=== PATIENT | male | born 1955 | race Hispanic/Latino ===

== ENCOUNTER 2019-01-10 07:44 | Day surgery (SDC) | payer OTHER, SELFPAY ==
[2019-01-10] MEDS: PROPARACAINE 0.5% OPHTH SOL 2 DROPS EYE-OP (08:35)
[2019-01-10 08:39] VITALS: BP 181/75; PULSE 60; RESP 24; TEMP 36.1; O2SAT 99
[2019-01-10 08:40] VITALS: BMI 46.5
[2019-01-10] MEDS: CATARACT EYE COMPOUND (10 DROPS/SYRINGE) 3 DROPS EYE-OP (08:40)
--- NOTE | 2019-01-10 09:29 | PM.PREOP ---
Pre-operative Note Interval Note History & Physical reviewed/Exam performed by Physician: No Changes to H&P: No
--- NOTE | 2019-01-10 09:35 | PM.OP.1 ---
Operative Date/Time/Diagnoses Pre-op diagnosis: Nuclear cataract right eye Procedure & Clinicians Procedure: Cataract Surgery Same procedure as scheduled: Yes Surgeon: Daniel Khoury Anesthesia Type: MAC +/- and Sedation Operative Notes Procedure in detail: Patient brought to the operating suite. Tetracaine drops placed in the right eye. Patient was prepped and draped in sterile manner. Wire lid speculum was placed in the eye. Betadine drops were placed on the eye. This was irrigated. Lidocaine jelly was placed on the eye. A paracentesis port was created with a side-port blade. 0.1 mL 1% preservative free lidocaine was injected into the anterior chamber. The anterior chamber was deepened with viscoelastic. 2.6 mm keratome was used to create a temporal clear corneal incision. Cystotome and Utrata forceps were used to create continuous tear capsulorrhexis. Balanced salt solution was used to hydro dissect the nucleus. The phacoemulsification handpiece was inserted and the nucleus was removed using the stop and chop technique. The irrigation aspiration handpiece was inserted and the remaining cortex was removed. Anterior chamber was deepened with viscoelastic. An Bess ZCB00 intraocular lens with a power of 22.0 was injected into the capsular bag. Irrigation aspiration handpiece was inserted and the remaining viscoelastic was removed. Incision was hydrated with balanced salt solution and found to be leak free with pressure with Weck-Mel sponges. 0.1 mL Vigamox injected anterior chamber. 0.3 mL Kenalog 10 mg was injected subconjunctivally. Lid speculum was removed. The patient left the operating room in excellent condition. Complications: none Condition: stable Disposition: same day surgery
[2019-01-10] MEDS: PHENYLEPHRINE/LIDOCAINE VIAL (OR) 0.2 ML EYE-OP (09:51)
[2019-01-10] MEDS: MOXIFLOXACIN OPHTH DROPS 3 ML BOTTLE 2 DROPS INJ (09:52)
[2019-01-10] MEDS: TRIAMCINOLONE 50 MG/5 ML VIAL INJ (09:52)
[2019-01-10] MEDS: CHONDROIDTIN/SOD HYALURONATE 1.05 ML SYRINGE INTRAOCULA (09:52)
[2019-01-10] MEDS: TETRACAINE 0.5% OPHTH DROPS 4 ML 2 DROPS EYE-OP (09:52)
[2019-01-10] MEDS: LIDOCAINE JELLY 2% 5 ML 1 APPLIC TOP (09:52)
[2019-01-10] MEDS: BALANCED SALT IRRIG SOLN NO.2 500 ML, EPINEPHrine 1 MG IRR (09:53)
[2019-01-10 10:07] VITALS: BP 180/75; PULSE 60; RESP 20; TEMP 36.1; O2SAT 98
== END 2019-01-10 10:20 | disposition home or self-care (01) ==
LOC: OR 07:53
PROVIDERS: PCP Student in an Organized Health Care Education/Training Program; Visit Provider Ophthalmology
DX: H25.11 Age-related nuclear cataract, right eye (principal); E11.9 Type 2 diabetes mellitus without complications; Z79.84 Long term (current) use of oral hypoglycemic drugs; Z86.73 Personal history of transient ischemic attack (TIA), and cerebral infarction without residual deficits; G51.0 Bell's palsy; Z79.01 Long term (current) use of anticoagulants
CPT/HCPCS: J0171; J2250; J3010; J3301

== ENCOUNTER 2019-01-17 07:47 | Day surgery (SDC) | payer OTHER, SELFPAY ==
[2019-01-17 08:40] VITALS: BP 189/84; PULSE 71; RESP 16; TEMP 36.4; O2SAT 98; BMI 45.8
[2019-01-17] MEDS: PROPARACAINE 0.5% OPHTH SOL 2 DROPS EYE-OP (08:45)
[2019-01-17] MEDS: CATARACT EYE COMPOUND (10 DROPS/SYRINGE) 3 DROPS EYE-OP (08:50)
--- NOTE | 2019-01-17 09:38 | PM.PREOP ---
Pre-operative Note Interval Note History & Physical reviewed/Exam performed by Physician: No Changes to H&P: No
--- NOTE | 2019-01-17 09:38 | PM.OP.1 ---
Operative Date/Time/Diagnoses Pre-op diagnosis: Nuclear Cataract Left eye Post-op diagnosis: same Procedure & Clinicians Surgeon: Daniel Khoury Anesthesia Type: MAC +/- and Sedation Operative Notes Procedure in detail: Patient brought to the operating suite. Tetracaine drops placed in the left eye. Patient was prepped and draped in sterile manner. Wire lid speculum was placed in the eye. Betadine drops were placed on the eye. This was irrigated. Lidocaine jelly was placed on the eye. A paracentesis port was created with a side-port blade. 0.1 mL 1% preservative free lidocaine was injected into the anterior chamber. The anterior chamber was deepened with viscoelastic. 2.6 mm keratome was used to create a temporal clear corneal incision. Cystotome and Utrata forceps were used to create continuous tear capsulorrhexis. Balanced salt solution was used to hydro dissect the nucleus. The phacoemulsification handpiece was inserted and the nucleus was removed using the stop and chop technique. The irrigation aspiration handpiece was inserted and the remaining cortex was removed. Anterior chamber was deepened with viscoelastic. An Bess ZCB00 intraocular lens with a power of 21.5 was injected into the capsular bag. Irrigation aspiration handpiece was inserted and the remaining viscoelastic was removed. Incision was hydrated with balanced salt solution and found to be leak free with pressure with Weck-Mel sponges. 0.1 mL Vigamox injected anterior chamber. 0.3 mL Kenalog 10 mg was injected subconjunctivally. Lid speculum was removed. The patient left the operating room in excellent condition. Complications: none Condition: stable Disposition: same day surgery
[2019-01-17] MEDS: CHONDROIDTIN/SOD HYALURONATE 1.05 ML SYRINGE INTRAOCULA (09:51)
[2019-01-17] MEDS: PHENYLEPHRINE/LIDOCAINE VIAL (OR) 0.2 ML EYE-OP (09:52)
[2019-01-17] MEDS: MOXIFLOXACIN OPHTH DROPS 3 ML BOTTLE 2 DROPS INJ (09:52)
[2019-01-17] MEDS: TETRACAINE 0.5% OPHTH DROPS 4 ML 2 DROPS EYE-OP (09:52)
[2019-01-17] MEDS: LIDOCAINE JELLY 2% 5 ML 1 APPLIC TOP (09:52)
[2019-01-17] MEDS: BALANCED SALT IRRIG SOLN NO.2 500 ML, EPINEPHrine 1 MG IRR (09:53)
[2019-01-17] MEDS: TRIAMCINOLONE 50 MG/5 ML VIAL INJ (09:53)
[2019-01-17 10:06] VITALS: BP 175/76; PULSE 69; RESP 16; TEMP 36.7; O2SAT 99
== END 2019-01-17 10:16 | disposition home or self-care (01) ==
PROVIDERS: PCP Student in an Organized Health Care Education/Training Program; Visit Provider Ophthalmology
DX: H25.12 Age-related nuclear cataract, left eye (principal); E11.9 Type 2 diabetes mellitus without complications; Z79.84 Long term (current) use of oral hypoglycemic drugs; G51.0 Bell's palsy; Z86.73 Personal history of transient ischemic attack (TIA), and cerebral infarction without residual deficits
CPT/HCPCS: J0171; J2250; J3010; J3301

== ENCOUNTER → 2020-03-08 11:55 | Outpatient (ROUT) | payer MEDICARE, SELFPAY ==
[2020-03-08 12:01] LABS: Add Manual Diff / Slide Review NO; Basophils Absolute Auto 0 /uL (0-100); Basophils Percent Auto 0.5 % (0-2); Eosinophils Absolute Auto 300 /uL (0-450); Eosinophils Percent Auto 3.9 % (2-4); Hematocrit 37.8 % (41-53); Hemoglobin 12.3 g/dL (13.5-17.5); Lymphocytes Absolute Auto 1000 /uL (1100-4500); Lymphocytes Percent Auto 15.9 % (25-40); Mean Corpuscular HGB Conc 32.7 % (30-36); Mean Corpuscular Hemoglobin 26.3 PG (26-34); Mean Corpuscular Volume 80.4 fL (80-100); Monocytes Absolute Auto 700 /uL (0-900); Monocytes Percent Auto 10.6 % (3-14); Neutrophils Absolute Auto 4500 /uL (1500-7000); Neutrophils Percent Auto 69.1 % (50-75); Platelet Count 184 X10^3/uL (150-400); Red Blood Cell Count 4.69 X10^6/uL (4.5-5.9); Red Cell Distribution Width 15.6 % (11.6-14.8); White Blood Cell Count 6.5 X10^3/uL (4.5-11.0)
[2020-03-08 12:08] LABS: BUN Creatinine Ratio 15.1 (6-22); Blood Urea Nitrogen 18 mg/dL (9-20); Calcium 8.7 mg/dL (8.4-10.2); Carbon Dioxide 29 mmol/L (22-32); Chloride 99 mmol/L (98-107); Estimated Glomerular Filt Rate > 60.0 mL/min (>60); Glucose 67 mg/dL (80-110); HEMOLYSIS 41 (0-50); Potassium 4.1 mmol/L (3.4-5.1); Sodium 137 mmol/L (137-145)
== END ==
PROVIDERS: PCP Student in an Organized Health Care Education/Training Program; Visit Provider Internal Medicine
DX: M86.171 Other acute osteomyelitis, right ankle and foot (principal)
CPT/HCPCS: 80048; 85025

== ENCOUNTER → 2020-03-11 13:40 | Outpatient (ROUT) | payer MEDICARE, SELFPAY ==
[2020-03-13 04:31] LABS: COVID19 Sendout Not Detected (Not Detected)
== END ==
PROVIDERS: PCP Student in an Organized Health Care Education/Training Program; Visit Provider Internal Medicine
DX: Z11.59 Encounter for screening for other viral diseases (principal)
CPT/HCPCS: 87635

== ENCOUNTER → 2020-05-23 12:31 | Outpatient (CLI) | payer MEDICARE, SELFPAY | PROVIDERS: PCP Student in an Organized Health Care Education/Training Program; Referring Provider Podiatrist; Visit Provider Family Medicine | DX: E11.621 Type 2 diabetes mellitus with foot ulcer (principal); M86.171 Other acute osteomyelitis, right ankle and foot; L97.514 Non-pressure chronic ulcer of other part of right foot with necrosis of bone | CPT/HCPCS: 11044; 87070; 87075; 87077; 87147; 87185; 87186; 87205; 99203; 99213 ==

== ENCOUNTER → 2020-05-30 11:15 | Outpatient (CLI) | payer MEDICARE, SELFPAY | PROVIDERS: PCP Student in an Organized Health Care Education/Training Program; Referring Provider Student in an Organized Health Care Education/Training Program; Visit Provider Family Medicine | DX: E11.621 Type 2 diabetes mellitus with foot ulcer (principal); L97.514 Non-pressure chronic ulcer of other part of right foot with necrosis of bone; B95.61 Methicillin susceptible Staphylococcus aureus infection as the cause of diseases classified elsewhere; B95.2 Enterococcus as the cause of diseases classified elsewhere; L08.9 Local infection of the skin and subcutaneous tissue, unspecified | CPT/HCPCS: 11042; 99213 ==

== ENCOUNTER → 2020-06-05 13:42 | Outpatient (CLI) | payer MEDICARE, SELFPAY | PROVIDERS: PCP Student in an Organized Health Care Education/Training Program; Referring Provider Student in an Organized Health Care Education/Training Program; Visit Provider Family Medicine | DX: E11.621 Type 2 diabetes mellitus with foot ulcer (principal); L97.514 Non-pressure chronic ulcer of other part of right foot with necrosis of bone; B95.61 Methicillin susceptible Staphylococcus aureus infection as the cause of diseases classified elsewhere; B95.2 Enterococcus as the cause of diseases classified elsewhere; L08.9 Local infection of the skin and subcutaneous tissue, unspecified; Z79.2 Long term (current) use of antibiotics | CPT/HCPCS: 11042; 99213 ==

== ENCOUNTER → 2020-06-12 08:45 | Outpatient (CLI) | payer MEDICARE, SELFPAY ==
[2020-06-12 10:51] LABS: Add Manual Diff / Slide Review NO; Basophils Absolute Auto 0 /uL (0-100); Basophils Percent Auto 0.4 % (0-2); Eosinophils Absolute Auto 200 /uL (0-450); Eosinophils Percent Auto 2.2 % (2-4); Hematocrit 34.2 % (41-53); Hemoglobin 11.2 g/dL (13.5-17.5); Lymphocytes Absolute Auto 1500 /uL (1100-4500); Lymphocytes Percent Auto 16.3 % (25-40); Mean Corpuscular HGB Conc 32.8 % (30-36); Mean Corpuscular Hemoglobin 26.3 PG (26-34); Monocytes Absolute Auto 600 /uL (0-900); Monocytes Percent Auto 6.8 % (3-14); Neutrophils Absolute Auto 6600 /uL (1500-7000); Neutrophils Percent Auto 74.3 % (50-75); Platelet Count 205 X10^3/uL (150-400); Red Blood Cell Count 4.27 X10^6/uL (4.5-5.9); Red Cell Distribution Width 17.1 % (11.6-14.8); White Blood Cell Count 8.9 X10^3/uL (4.5-11.0)
[2020-06-12 11:11] LABS: Erythrocyte Sedimentation Rate 59 MM/HR (0-15)
[2020-06-12 11:38] LABS: Alanine Aminotransferase 19 IU/L (<50); Albumin 3.7 g/dL (3.5-5.0); Albumin Globulin Ratio 1.2 (1.0-2.8); Alkaline Phosphatase 113 U/L (38-126); Aspartate Aminotransferase 29 IU/L (17-59); Bilirubin Total 0.4 mg/dL (0.2-1.3); Blood Urea Nitrogen 24 mg/dL (9-20); C-Reactive Protein Quant 0.9 mg/dL (<1.0); Calcium 9.1 mg/dL (8.4-10.2); Carbon Dioxide 31 mmol/L (22-32); Chloride 99 mmol/L (98-107); Estimated Glomerular Filt Rate > 60.0 mL/min (>60); Globulin 3.1 g/dL (1.7-4.1); Glucose 318 mg/dL (80-110); HEMOLYSIS < 15 (0-50); Potassium 4.1 mmol/L (3.4-5.1); Sodium 135 mmol/L (137-145); Total Protein 6.8 g/dL (6.3-8.2)
== END ==
PROVIDERS: PCP Student in an Organized Health Care Education/Training Program; Referring Provider Student in an Organized Health Care Education/Training Program; Visit Provider Family Medicine
DX: E11.621 Type 2 diabetes mellitus with foot ulcer (principal); L97.516 Non-pressure chronic ulcer of other part of right foot with bone involvement without evidence of necrosis; Z79.2 Long term (current) use of antibiotics; L97.514 Non-pressure chronic ulcer of other part of right foot with necrosis of bone; B95.61 Methicillin susceptible Staphylococcus aureus infection as the cause of diseases classified elsewhere; B95.2 Enterococcus as the cause of diseases classified elsewhere; L08.9 Local infection of the skin and subcutaneous tissue, unspecified
CPT/HCPCS: 11042; 36415; 78315; 80053; 85025; 85651; 86140; A9503

== ENCOUNTER → 2020-06-12 09:53 | Outpatient (CLI) | payer MEDICARE, SELFPAY ==
--- NOTE | 2020-06-12 | DI.NM.S_ITS ---
PROCEDURE: NM BONE 3 PHASE RADIOPHARMACEUTICAL: 21.3 mCi Tc-99m MDP IV. INDICATIONS: Type 2 Diabetes w/foot ulcer TECHNIQUE: Multiple bone scintigrams were obtained after intravenous injection of Tc-99m MDP, including flow, blood pool, and delayed images centered to the region of interest. COMPARISON: MR, FOOT W&WO CONTRAST, 11/14/2012, 11:47. CR, FOOT 3V LEFT, 03/16/2012, 18:29. Outside Facility, RG, XR FOOT 3V RIGHT, 02/24/2020, 10:21. [facility], CR, XR FOOT 3+ VIEWS RIGHT, 05/20/2020, 10:47. FINDINGS: Flow and blood pool images demonstrate increased vascular activity in the lateral aspect of the proximal right foot near the base of the 5th metatarsal. Delayed images demonstrate increased activity at the base of the 5th metatarsal. Increased delayed periarticular activity in multiple peripheral joints are present, consistent with degenerative/arthritic changes. 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 IMPRESSION: The scintigraphic findings consistent with osteomyelitis at the base of the 5th metatarsal. Dictated by: Yogesh Cardoso M.D. on 06/13/2020 at 11:37 Approved by: Yogesh Cardoso M.D. on 06/13/2020 at 11:42
== END ==
PROVIDERS: PCP Student in an Organized Health Care Education/Training Program; Referring Provider Student in an Organized Health Care Education/Training Program; Visit Provider Family Medicine
DX: E11.621 Type 2 diabetes mellitus with foot ulcer (principal); L97.516 Non-pressure chronic ulcer of other part of right foot with bone involvement without evidence of necrosis; Z79.2 Long term (current) use of antibiotics
CPT/HCPCS: 78315; A9503

== ENCOUNTER → 2020-06-25 08:59 | Outpatient (CLI) | payer MEDICARE, SELFPAY ==
[2020-06-26 09:49] LABS: COVID19 Sendout Not Detected (Not Detect)
== END ==
PROVIDERS: PCP Student in an Organized Health Care Education/Training Program; Visit Provider Physician Assistant
DX: Z11.59 Encounter for screening for other viral diseases (principal)
CPT/HCPCS: 87635

== ENCOUNTER → 2020-06-26 08:39 | Outpatient (CLI) | payer MEDICARE, SELFPAY | PROVIDERS: PCP Student in an Organized Health Care Education/Training Program; Referring Provider Student in an Organized Health Care Education/Training Program; Visit Provider Family Medicine | DX: E11.621 Type 2 diabetes mellitus with foot ulcer (principal); L97.514 Non-pressure chronic ulcer of other part of right foot with necrosis of bone; B95.61 Methicillin susceptible Staphylococcus aureus infection as the cause of diseases classified elsewhere; B95.2 Enterococcus as the cause of diseases classified elsewhere; L08.9 Local infection of the skin and subcutaneous tissue, unspecified; M86.171 Other acute osteomyelitis, right ankle and foot; Z79.2 Long term (current) use of antibiotics | CPT/HCPCS: 11042; 99213 ==

== ENCOUNTER 2020-06-29 11:30 | Inpatient (IN) | payer MEDICARE, SELFPAY ==
[2020-06-25 08:51] VITALS: BMI 44.4
[2020-06-28] VITALS (13 sets, daily range): BP systolic 130–155; BP diastolic 61–89; PULSE 55–77; RESP 10–20; TEMP 35.6–36.6; O2SAT 88–99; BMI 44.4
--- NOTE | 2020-06-28 | PATH_ITS ---
[facility] Accession Number: [id number] . 01 Material submitted: . bone - RIGHT 5TH METATARSAL BASE . 01 Clinical history: . RIGHT FIFTH METATARSAL BASE PARTIAL RESECTION . 01 Diagnosis: Right Fifth Metatarsal Base, Partial Resection: Fragments of trabecular bone with evidence of remodeling, reactive new bone formation, and interspersed marrow with inflamed granulation tissue and fibrosis; see note. Minimal surrounding soft tissue with fibrosis. . Note: The features are suggestive of chronic osteomyelitis in the appropriate clinical setting. The inflammatory changes focally extend to the black-inked proximal aspect. There is no evidence of malignancy in sections examined. Clinicopathologic and radiographic correlation is recommended. MRV 07/01/2020 1126 Local . 01 Electronically signed: . Michael Jarrett MD, Dermatopathologist NPI- [id number] . 01 Gross description: . Received in formalin, labeled with the patient's name, MRN and right fifth metatarsal base, suture on proximal aspect, is a 1.7 cm in length by 1.4 cm in diameter portion of bone with a stitch on the proximal aspect. Opposing the proximal aspect is a orozco-white smooth resection margin. The proximal portion is inked black and the smooth resection margin is inked blue. Full-thickness perpendicular sections are submitted in cassettes A1 and A2 after decalcification. (SD/[id number]) /MRV 06/30/2020 2335 Local . 01 Pathologist provided ICD-10: M86.679 . 01 CPT . 624338, 300229 Performed at: [address] [facility], [place], [place] [id number] MD Andriy Connor MD Phone: [phone]
--- NOTE | 2020-06-28 12:47 | SUR.PREOP ---
Patient's blood sugar noted to be 60 on arrival to room. C/o nausea but no other symptoms. GCS 15. Patient states that his blood sugar this morning at 0400 was 80 and that he took 48 units of Lantus as directed prior to coming to hospital. Anesthesiology noted. Orders received for D50.
[2020-06-28] MEDS: DEXTROSE 50 % IN WATER 25 GM/50 ML SYRINGE IV (13:00)
[2020-06-28] MEDS: DEXTROSE 5% WATER 1,000 ML 100 ML IV (13:13)
--- NOTE | 2020-06-28 13:18 | SUR.PREOP ---
Updated anesthesiology with new blood sugar of 128. Per Anesthesiology, continue D5 infusion at a rate of 40 ml/hr and continue to monitor blood sugar. Patient is asymptomatic. Patient has strong pedal pulses bilaterally and has full sensation. Patient denies neuropathy. All toes are missing from left lower extremity due to complications from diabetes. Right foot presents with second and third toes missing.
[2020-06-28] MEDS: LACTATED RINGERS 1,000 ML 42 ML IV (13:34)
--- NOTE | 2020-06-28 13:41 | P.OP_ITS ---
Operative Date/Time/Diagnoses Date of procedure: 06/28/20 Time of procedure: 13:42 Pre-op diagnosis: Right foot fifth metatarsal base wound, suspect osteomyelitis Post-op diagnosis: same Procedure & Clinicians Procedure: Right fifth metatarsal base excision Same procedure as scheduled: Yes Indications: Ongoing wound right foot. Suspect portion of fifth metatarsal base has osteomyelitis. Conservative measures failed to heal the wound and bone and surgical intervention determined to be the next step. We spoke of the risks, potential complications, expected outcomes. Consent signed, no contraindications to the procedure at this time. Surgeon: Sammi Moss Click Yes if Unassisted: Yes Anesthesia Type: MAC +/- and Local Operative Notes Closure Type: non-primary Specimen(s): other (1) Fifth metatarsal base right foot bone culture 2)Fifth metatarsal base right foot bone to pathology) Prosthetic devices, grafts, tissues, transplants, or devices: 1/ Nu-gauze packing, Flow-Seal injectable thrombin mixture Estimated Blood Loss (mL): 60 Blood products transfused: none Tourniquet time (min): 52 Procedure in detail: The patient was brought to the operating room and placed on the operating table in the supine position. The tourniquet was placed about the ankle. Well padded and appropriately aligned. After induction of mild iv sedation, local anesthesia was obtained to the foot and ankle. The right foot/ankle were prepped and draped in the usual aseptic manner. The tourniquet was inflated. After check of anesthesia a full-thickness incision was made along the existing wound on the dorsolateral foot along the fifth metatarsal base. Once the base of the fifth metatarsal was clarified and the surrounding wound base was resected, a saw was used to resect the base of the fifth metatarsal and it was removed. The area was irrigated with copious amounts of normal sterile saline. The distal portion of the fifth metatarsal base was taken from the remainder and sent to culture. The larger proximal remaining bone fragment was tagged with suture at the proximal edge of the base and sent to pathology for identification. The area was irrigated with copious amounts of normal sterile saline. No further necrotic tissue or abscesses were noted. Skin and tissue was revised to allow for appropriate closure. Vessels were cauterized and ligated as necessary. There was continued bleeding in general, possibly due to the late stoppage of xarelto. Use of cautery, pressure, and Flow-Seal injectable mixture, bleeding was controlled. The proximal and distal aspects of the incision were able to be brought together with use of 3-0 and 2-0 Nylon. The central wound was not closed but was gently packed with 1/4 Nu-gauze plain. Dressing of adaptic, 4x4, abd pads, kerlix, ANGELINE wrap placed, and pt was transferred to the PACU with vital signs stable and vascular status intact to the foot. Complications: none Post-operative Condition: stable Disposition: Acute Care Plan for aftercare: Pt transferred to Acute Care for overnight observation and check on wound stability as well as information regarding possible bone infectious process. This will aid in our decision for further need for advanced rehabilitation care. He will be seen tomorrow with a decision on further hospi talization. He is to be NWB right foot.
--- NOTE | 2020-06-28 13:41 | PM.PREOP ---
Pre-operative Note COVID-19 COVID-19 status: Negative Result date/Date tested (Pos, Neg/Pending): 06/28/20 Interval Note History & Physical reviewed/Exam performed by Physician: Yes Changes to H&P: No
[2020-06-28] MEDS: CEFAZOLIN 2 GM/100 ML FROZ.PIGGY IV (13:54)
--- NOTE | 2020-06-28 14:31 | SUR.OPER ---
Supine on padded OR bed, blanket bumps under right hip x2, blankets x3 under leg from thigh to mid calf, head on pillow, arms secured on padded arm boards at <90 degrees abduction, legs uncrossed, safety belt at thigh, tape over blanket over lower left leg.
[2020-06-28] MEDS: BUPIVACAINE 0.5% (PF) VIAL 30 ML INJ (14:38)
[2020-06-28] MEDS: LIDOCAINE 2% INJ SDV 10 ML INJ (14:38)
--- NOTE | 2020-06-28 16:30 | SUR.PHASEI ---
valuable belongings bag given to evening shiftman.
[2020-06-28] MEDS: METFORMIN HCL 500 MG TABLET 1000 MG PO (18:25)
[2020-06-28] MEDS: HYDROCODONE/ACET 5/325 TABLET 1 TAB PO (18:26)
--- NOTE | 2020-06-28 19:35 | PC.NURSE ---
Addendum entered by Alyssa Cardoza R.N. 06/28/20 22:12: Pt reports full sensation left foot although all five toes have previously been amputated. Cotton stockinette to right foot dry and intact. Cpap set up for patient and available for use. Reports back pain resolved with vicodin. Taking oral fluids and foods well. Noted few scabbed regions to left hand pt reports this occurred when mailing letters in mailbox. Bed alarm set and call light available. Pt has voided since arrival to floor. Original Note: 1625 Pt to room 204 from PACU. Denies surgical pain right foot and denies nausea. Taking oral foods and fluids well. Right foot wrapped in cotton stockinette and is dry and intact. Elevated on pillow x 1. Pt admits to chronic back pain for which states takes vicodin at home. Was medicated for same. Pt states feels occasional numbness to right foot toes to midfoot which resolves with movement. Left calf scd in place. Pt is minus all five toes to left foot. Instructed pt to notify staff when desiring to sleep and will assist with cpap set up. Also informed pt non weight bearing to right foot. Pt verbalizes understanding.
[2020-06-28] MEDS: SIMVASTATIN 40 MG TABLET PO (21:05)
[2020-06-28] MEDS: DOXAZOSIN 2 MG TABLET PO (21:05)
[2020-06-28] MEDS: carvediloL 12.5 MG TABLET PO (21:05)
[2020-06-28] MEDS: SODIUM CHLORIDE 0.9% FLUSH 10 ML IV (21:16)
[2020-06-29] VITALS (14 sets, daily range): BP systolic 127–164; BP diastolic 61–83; PULSE 54–64; RESP 16–18; TEMP 36.2–36.9; O2SAT 94–99
[2020-06-29] MEDS: HYDROCODONE/ACET 5/325 TABLET 1 TAB PO ×3 (01:49→16:57)
--- NOTE | 2020-06-29 01:55 | PC.NURSE ---
3 liters SPO2 100%, turned 02 down to 2 liters & SPO2 97%. will monitor.
[2020-06-29 05:34] LABS: Hematocrit 31.9 % (41-53); Hemoglobin 10.3 g/dL (13.5-17.5); Mean Corpuscular HGB Conc 32.4 % (30-36); Mean Corpuscular Hemoglobin 26.1 PG (26-34); Mean Corpuscular Volume 80.4 fL (80-100); Platelet Count 181 X10^3/uL (150-400); Red Blood Cell Count 3.97 X10^6/uL (4.5-5.9); Red Cell Distribution Width 16.8 % (11.6-14.8); White Blood Cell Count 8.1 X10^3/uL (4.5-11.0)
--- NOTE | 2020-06-29 08:37 | PM.PNPO.1 ---
Subjective Subjective Date Patient Seen: 06/29/20 Time Patient Seen: 08:37 Interval history: s/p 1 day right fifth metatarsal base excision Exam Vital Signs (past 8 hours): - 06/29/20 05:00 06/29/20 07:00 06/29/20 07:49 Temperature 97.3 F L 97.7 F Pulse Rate 64 54 L 54 L Respiratory Rate 18 16 16 Blood Pressure 133/83 164/61 H Pulse Oximetry 99 95 99 Oxygen Delivery Method Room Air Oxygen Flow Rate 0 Const General: cooperative and comfortable Orientation: alert, awake and oriented x3 Eyes EOM: EOM intact bilaterally Resp Effort & Inspection: normal respiratory effort Cardio Pulses: posterior tibial pulses present and dorsalis pedis present Extrem Left lower extremity: foot Other: Right foot lateral fifth metatarsal base wound has wound packing in place, and a little strike-though on the dressings. There is no active bleeding but the wound is moist. No purulence, no erythema to surrounding tissues. Edema right foot. Sutures in place proximal and distal to the wound. There is no pain on pressure to the wound nor on dressing change. There is lack of sensation to the foot. There is to crepitus on pressure to the foot or posterior calf. He is able to gently wave the foot on DF/PF. CFT immediate to the digits. Objective Labs Result Diagrams: 06/29/20 05:15 Labs: Laboratory Results - last 24 hr 06/29/20 05:15 WBC 8.1 RBC 3.97 L Hgb 10.3 L Hct 31.9 L MCV 80.4 MCH 26.1 MCHC 32.4 RDW 16.8 H Plt Count 181 Surgical Cultures right foot fifth metatarsal base, leading distal edge. Gram Stain Final 06/28/20-1958 No Organism Seen No organisms seen White blood cells Occasional WBC seen Aerobic Culture for wounds Preliminary 06/29/20-840 Organism 1 Staphylococcus aureus Growth SCANT Action to follow Sensitivity to Follow Anaerobic Culture Pending Assessment & Plan Post-op Postoperative Procedures: Procedures Operation Date: 06/28/20 13:30 Actual Procedures Side Surgeon p 5th metatarsal base partial resection Right Sammi Moss, DPM 64 yo DM male seen s/p Right fifth MT base partial excision. He is doing well, slept well, he did have pain to the foot when it was pressed upon but doing ok at the moment. 1. Dressing changed, wound looks improved and stable from last night; no active bleeding and packing was easily changed, wound washed, repacked, and redressed, reinforced. Consider dressing change again tomorrow morning. 2. Non-weightbearing right foot. He is used to using his walking stick, but understands he will need to put almost no weight on the foot during this time of healing. I will ask PT to consult for options for him. He relates having used a wheel chair in the past and also tried a walker but does need to use a little touchdown on the right foot with that (which is ok if for transfers or to the commode). 3. He has a post op shoe he brought with him he can use for when he needs to get up on the foot as above. 4. Early indications are that culture of cut edge of fifth metatarsal has staph aureus growth (scant). This has grown out historically in this wound and will empirically start him on iv antibiotics to counter this, doxycycline, and use his prior susceptibilities and resistances to start abx choice, then tailor to his needs once we get further info. 5. PICC placement for Wednesday, iv ok until then. 6. Wound may be candidate for VAC, but will discuss after the weekend with his Wound Care physician and perform local dressings to the wound until that decision made. 7. Discussed disposition with Care Management today, and she is looking to secure a space for him at a local rehab facility to allow for wound care, iv antibiotics, and assistance with ADL while he is NWB right foot. 8. Will monitor his Hb and look for hoahaoism of blood loss from operative procedure yesterday. 9. DM management reviewed with him and nursing and we have him comfortably on his home routine as well as SS, and will watch to note any needed changes here.
[2020-06-29] MEDS: LOSARTAN 50 MG TABLET 100 MG PO (08:48)
[2020-06-29] MEDS: DOXAZOSIN 2 MG TABLET PO ×2 (08:49→21:46)
[2020-06-29] MEDS: GABAPENTIN 300 MG CAPSULE PO (08:49)
[2020-06-29] MEDS: carvediloL 12.5 MG TABLET PO ×2 (08:50→21:45)
[2020-06-29] MEDS: FUROSEMIDE 40 MG TABLET PO (08:50)
[2020-06-29] MEDS: ASPIRIN EC 81 MG TABLET PO (08:50)
[2020-06-29] MEDS: METFORMIN HCL 500 MG TABLET 1000 MG PO ×2 (08:50→16:56)
[2020-06-29] MEDS: LATANOPROST 0.005% OPHTH 2.5 ML 1 DROPS EYE-BOTH (08:51)
[2020-06-29] MEDS: INSULIN GLARGINE 100 UNIT/ML 3ML PEN 65 UNIT SUBCUT (08:51)
[2020-06-29] MEDS: INSULIN ASPART 100 UNIT/ML INSULN PEN SUBCUT ×3 (08:52→16:50)
[2020-06-29] MEDS: INSULIN ASPART 100 UNIT/ML INSULN PEN 15 UNIT SUBCUT ×2 (08:54→13:02)
[2020-06-29] MEDS: SODIUM CHLORIDE 0.9% FLUSH 10 ML IV ×4 (08:55→21:46)
--- NOTE | 2020-06-29 09:06 | CM.DANOTE ---
Addendum entered by Kary Oneil R.N. 06/29/20 11:14: Went ahead and completed PASSR. Addendum entered by Kary Oneil R.N. 06/29/20 11:03: Dr. Moss called this medical case worker to update that patient will be discharging on IV antibiotics. She mentioned that wound care clinic can be ordered on an outpatient basis, as well. At this time, skilled is the plan. Spoke to Marbella in admissions. She stated she does not have access to review, but to fax over referral. Faxed over face sheet, operative report, today's progress note, and history and physical. Marbella indicated that [facility] can't be authorized over the week-end, but April can work on it Wednesday. Marbella indicated that it can take up to two days. Marbella also stated that the do have male beds available. Original Note: DCP:Case received, EMR reviewed and met with patient. Introduced self and role. Was able to obtain information from patient regarding his baseline activity status prior to hospitalization, living situation, and goals of discharge. DCP assessment completed with information currently available. Patient is a 64 year old male who admitted yesterday morning to the care of the surgical/podiatry team. PCP: Dr. Tee. Payer: confirmed: [employer] [facility]. Patient came to the hospital via private vehicle for a surgical procedure. He had excision of 5th metatarsal of his right foot, and has diagnosis of osteomyelitis. Dr. Fierro, power system engineer, was in his room performing wound care. Discussed needs at discharge, including group home. Patient will need IV antibiotics at discharge, but is uncertain as to which ones as of yet. He does not yet have a PICC line. He will also be non weight bearing. He may also be getting a wound vac, since patient sees Dr. Rodriguez at wound clinic as well. Met with patient in his room. He is pleasant, alert and oriented. He resides alone in [place]. He stated, I was recently at [facility] in April, and would be ok going back there. Patient does have [employer] MCR, and is uncertain if authorization will be able to get obtained over the week-end. Have left a message with [facility] to call this medical case worker back, regarding bed availability, and insurance authorization. Dr. Fierro states that he will likely have needs to be her over the week-end, and will most likely get a PICC line, and will also need wound care and to work with P.T. as well. She will also have a better idea as to which ABO he will need to be on. P: DCP to continue to follow. Plan is for patient to go to [facility], as long as they have bed availabilities, and insurance will also need to get authorized. Will follow up with them again today. Kary Oneil RN/Tool Keeper
[2020-06-29] MEDS: SODIUM CHLORIDE 0.9% 250 ML 21 ML IV (10:26)
[2020-06-29] MEDS: DOXYCYCLINE 100 MG in SODIUM CHLORIDE 0.9% 100 ML IV ×2 (10:27→21:47)
--- NOTE | 2020-06-29 12:39 | PT.IIE ---
Current Diagnoses Type 2 diabetes mellitus with diabetic polyneuropathy (06/28/20) Type 2 diabetes mellitus with foot ulcer (06/28/20) Other specified diabetes mellitus with foot ulcer (06/28/20) Osteomyelitis, unspecified (06/28/20) Acquired absence of right foot (06/28/20) Surgery Performed Operation Date: 06/28/20 13:30 Actual Procedures p 5th metarsal base partial resection(Right) - Sammi Mane DPM Surgical History (Last Updated 06/26/20 @ 15:18 by Ivy Hunter RN) History of bilateral carpal tunnel release (Acute) Hx of appendectomy (Acute 2002) Hx of bilateral cataract extraction (Acute 12/2018) Hx of hernia repair (Acute) Medical History (Last Updated 06/27/20 @ 09:37 by Ivy Hunter RN) Amputated toe of left foot (Acute) Atrial flutter (Acute) CVA (cerebral vascular accident) (Acute 1999) Depression (Acute) Diabetes (Acute) Diabetic ulcer of ankle (Acute) Foot osteomyelitis, left (Acute 08/2012) Heart disease (Acute) HLD (hyperlipidemia) (Acute) HTN (hypertension) (Acute) Lower leg edema (Acute) Neuropathy (Acute) BARRERA on CPAP (Acute) Physical Therapy Inpatient Evaluation/Re-Eval M1 PT/OT-IP Prior Functional Status Start: 06/29/20 16:28 Freq: NEEDED Status: Active Protocol: Document 06/29/20 12:39 AB (Rec: 06/29/20 17:00 AB [id number]) Medical Review Prior Functional Status Medical History Reviewed Yes Communication able to make needs known Mobility and Gait pt stated that he is modified independent with all mobilities and ambulation using his walking stick Prior Functional Level (Other details) pt stated that he was just at [facility] rehab last april. Social History Household Members none Living Arrangements House Number of Floors (Floors) One Floor Number of Stairs To Enter/Railing? 4 steps to enter without rails Home Environment Standard Height Toilet,Tub/ Shower Home Equipment Straight Cane,Grab Bars Near Toilet Additional Social History Comment stated that his son lives down the street from his and may be able to assist if needed pt stated that he did not use a FWW because his house is small and FWW will not fit in M2 PT-IP Current Condition Start: 06/29/20 16:28 Freq: NEEDED Status: Active Protocol: Document 06/29/20 12:39 AB (Rec: 06/29/20 17:00 AB [id number]) Physical Therapy Current Condition Current Condition Evaluation Date 06/29/20 Treatment Diagnosis s/p R 5th metatarsal base excision; difficulty in walking Onset Date 06/28/20 Weight Bearing Status Weight Bearing Status Non-Weight Bearing Allowed Weight Bearing Amount (enter % per doctor's order NWB RLE; or #) (%) may to touch down weight bearing for transfers; talked to Dr. Mane and stated that pt is NWB on RLE but it pt does touch down weight bearing, it is better to have foot flat on floor than just using toes/forefoot. M3 PT-IP Subjective Start: 06/29/20 16:28 Freq: NEEDED Status: Active Protocol: Document 06/29/20 12:39 AB (Rec: 06/29/20 17:00 AB [id number]) Subjective Physical Therapy Visit Type Type Initial Evaluation Visit Start Time 12:39 Visit Stop Time 13:22 Total Visit Minutes 37 Number of LIMB DRIVER Visits 0 Physical Therapy Visit Comments Patient Comments pt requested to use the toilet Therapy Pain Assessment Pain Present Pain Present Denied Pain M4 PT-IP Mobility and Gait Start: 06/29/20 16:28 Freq: NEEDED Status: Active Protocol: Document 06/29/20 12:39 AB (Rec: 06/29/20 17:00 AB [id number]) PT-Bed Mobility Assessment Supine to Sit Supine to Sit Standby Assistance PT-Transfer Assessment Sit to and From Stand Sit to and from Stand Contact Guard Assistance,1 Person Assistance,Use of Upper Extremities Equipment Transfer Assistive Device Gait Belt,Front Wheeled Walker Transfers Transfer Destination Toilet Transfer Technique ambulated using FWW Transfer Ability Level of Assist Contact Guard Assistance,1 Person Assistance,Use of Upper Extremities Comments Mobility Comments pt stated that he had PT at [facility] before for his foot as well and stated that he knows he is NWB on RLE but due to his body weight, he will not be able to maintain NWB but will need to have his foot down on floor but said that he will not push down on it and just use it for balance and that he is putting more weight on his forefoot. Pt also has prior L toes amputated and is having difficulty trying to balance with just standing on LLE. pt complete supine to sit SBA; sit to stand CGA and ambulated to the toilet using FWW CGA. pt unable to maintain NWB but cued on NWB and pt is aware and stated that he knows and is trying to use it to balance only. completed toileting and ambulated out of the toilet using FWW towards the sink and was able to maintain standing using FWW for support CGA and most weight on LLE. pt ambulated to the chair using FWW CGA. positioned on chair call light and table placed within reach. Talked to Dr. mane and stated that pt is NWB. informed the doctor that pt is unable maintain NWB on RLE but is doing what he can to just have foot down just for balance. informed the doctor that pt is trying not to put weight on where the wound is and tends to put weight on his toes. Dr stated that if pt' s wound is on the lateral 5th metatarsal area and due to pt' s decrease sensation and neuropathy with increase risk of sking breakdown, if pt has to put weight, it is better to have pt have foot flat than heel up. informed pt regarding doctor's instructions and that ambulation will be to a minimum to just functional short distance ambulation. Pt understood and agreed. Gait Assessment Gait Gait Assistance Required: Contact Guard Assist,1 Person Assist Distance (Feet) 15 Able to Maintain Weight Bearing Status Yes During Gait Assistive Devices Assistive Device Gait Belt,Front Wheeled Walker Orthotic/Prosthetic Devices or Brace: No Gait Deviations General Gait Pattern Antalgic Factors Limiting Gait Function Factors Limiting Gait Function Decreased Activity Tolerance, Decreased Sensation,Decreased Strength,Limited Range of Motion,Pain,Poor Balance,Poor Safety Awareness Comments Gait Comments pls refer to mobility section for details PT-Balance Assessment Sitting Balance and Reactions Static Sitting Balance Ability Good Dynamic Sitting Balance Ability Good Standing Balance and Reactions Static Standing Balance Ability Fair Dynamic Standing Balance Ability Poor Device Used FWW M5 PT-IP Objective Assessments Start: 06/29/20 16:28 Freq: NEEDED Status: Active Protocol: Document 06/29/20 12:39 AB (Rec: 06/29/20 17:00 AB [id number]) Orientation Orientation/Cognition Level of Alertness Alert Orientation Name,Age,Birthday,Month,Date, Year,Day of Week,Place, Situation Language Function Ability No Deficits Noted Safety Awareness Decreased Safety Awareness Memory Description No Deficits Noted Gross Range of Motion Lower Extremity ROM Assessment Within Functional Limits Strength Lower Extremity Strength Assessment Bilaterally Impaired Hip 3+/5 Knee 4-/5 Coordination Assessment Gross Coordination Gross Coordination WNL Sensation Assessment Sensation Light Touch Impaired Proprioception (Position) Impaired Sensation Description Numbness Muscle Tone Muscle Tone WNL Yes M6 PT-IP Treatment Start: 06/29/20 16:28 Freq: NEEDED Status: Active Protocol: Document 06/29/20 12:39 AB (Rec: 06/29/20 17:00 [id number]) Physical Therapy Treatment Education Education Provided Precautions,Weight Bearing Status,Safety M7 PT-IP Assessment and Plan Start: 06/29/20 16:28 Freq: NEEDED Status: Active Protocol: Document 06/29/20 12:39 AB (Rec: 06/29/20 17:00 AB [id number]) PT Summary Assessment and Plan Potential Rehabilitation Potential Fair Status of Condition at Evaluation Stable Summary Impairments Pain,ROM,Strength,Balance, Coordination,Sensation,Tone, Cognition,Bed Mobility, Transfers,Gait,Activity Tolerance Assessment Summary pt requiring CGA with mobility but unable to maintain NWB on RLE and will be limited to just functional short distance ambulation using FWW at this to ensure safety and healing of R foot. pt is well aware of his weight bearing precautions. pt has 4 steps to get into his house and is not appropriate to do stair climbing at this time. pt will require SNF rehab to improve mobility. Goals Bed Mobility Goal Independent Transfer Goal Independent,Front Wheeled Walker Gait Goal Independent,Front Wheel Walker Gait Distance 20 Days to Meet Goals 5 Frequency of Treatment Frequency Of Treatment Once a Day Treatment Plan Physical Therapy Treatment Plan Bed Mobility Training,Transfer Training,Gait Training, Therapeutic Exercise,Balance Retraining,Post Op Education, Discharge Planning,Hot or Cold Pack,Neuromuscular Re-ed, Coordination Retraining Other Recommendations and Next Treatment pls limit ambulation to Focus functional short distance ambulation with FWW at this time due to ensure pt's wound healing Recommendations To Nursing Amount of Assist Needed 1 Person Assist Discharge Recommendations PT Discharge Recommendations SNF Rehab
--- NOTE | 2020-06-29 15:31 | PC.NURSE ---
SHIFT SUMMARY- DR. MONTERROSO CAME IN FIRST THING THIS MORNING AND CHANGED PATIENT DRESSING. SPOKE WITH CARE MANAGEMENT. TOLERATING PAIN WELL. DRESSING REMAINS CLEAR DRY AND INTAKE. UP TO TOILET AND CHAIR WITH PHYSICAL THERAPY. PATIENT WAS TEARFUL WHEN PLACED ON CONTACT PRECAUTIONS DUE TO STAPH IN WOUND CULTURE.
--- NOTE | 2020-06-29 15:57 | PC.NURSE ---
Addendum entered by Alyssa Cardoza R.N. 06/29/20 22:45: Blood sugar 118. IV antibiotics infusing to right wrist iv site without difficulty. Addendum entered by Alyssa Cardoza R.N. 06/29/20 21:53: Blood sugar 49 @ hs check. Pt awake, conversant; admits to a little light headedness. Given sandwich and apple juice x 2. Rechecked and now @ 50. Remains conversant and appropriate with conversation and cognitively intact. Given orange juice and cookie. Will monitor. Addendum entered by Alyssa Cardoza R.N. 06/29/20 19:05: Pt states using I.S. to 2200. Addendum entered by Alyssa Cardoza R.N. 06/29/20 16:20: Question re pt's activity level postoperatively. Phone call to Dr. Moss by this service writer advisor to clarify. Jan Mark speaking to MD directly via telephone for direction. Original Note: Pt up in recliner at beginning of shift. Encouraged pt to elevated RLE and pt does this utilizing foot rest of recliner. Is able to perform this function independently. Admits to stinging type pain right foot, but refuses vicodin until meal time. States h/o N/V with narcotic use on empty stomach. Pt is easily tearful when sharing with this service writer advisor results of gram stain: staph. Contact precautions in place.
[2020-06-29] MEDS: INSULIN ASPART 100 UNIT/ML INSULN PEN 10 UNIT SUBCUT (16:51)
[2020-06-29] MEDS: GABAPENTIN 600 MG TABLET PO (16:56)
[2020-06-29] MEDS: SIMVASTATIN 40 MG TABLET PO (21:46)
[2020-06-30] VITALS (11 sets, daily range): BP systolic 127–168; BP diastolic 55–104; PULSE 44–62; RESP 15–18; TEMP 36.2–36.8; O2SAT 96–99
[2020-06-30] MEDS: HYDROCODONE/ACET 5/325 TABLET 1 TAB PO ×2 (05:22→19:35)
[2020-06-30 05:34] LABS: Add Manual Diff / Slide Review NO; Basophils Absolute Auto 100 /uL (0-100); Basophils Percent Auto 1.4 % (0-2); Eosinophils Absolute Auto 200 /uL (0-450); Eosinophils Percent Auto 3.1 % (2-4); Hematocrit 29.1 % (41-53); Hemoglobin 9.4 g/dL (13.5-17.5); Lymphocytes Absolute Auto 2000 /uL (1100-4500); Lymphocytes Percent Auto 26.4 % (25-40); Mean Corpuscular HGB Conc 32.5 % (30-36); Mean Corpuscular Hemoglobin 26.2 PG (26-34); Mean Corpuscular Volume 80.6 fL (80-100); Monocytes Absolute Auto 800 /uL (0-900); Neutrophils Absolute Auto 4500 /uL (1500-7000); Neutrophils Percent Auto 59.1 % (50-75); Platelet Count 153 X10^3/uL (150-400); Red Blood Cell Count 3.61 X10^6/uL (4.5-5.9); Red Cell Distribution Width 16.8 % (11.6-14.8); White Blood Cell Count 7.7 X10^3/uL (4.5-11.0)
--- NOTE | 2020-06-30 08:21 | PM.PNPO.1 ---
Subjective Subjective Date Patient Seen: 06/30/20 Time Patient Seen: 08:21 Interval history: s/p 2 days right fifth metatarsal base excision. Relates feeling good, no complaints. His blood sugar was low last night but he states he did not feel that effect, and has had that same insulin dose regiment for quite some time. He denies f/c/n/v and no significant pain to the foot. He met with phys therapy yesterday and they reviewed his WB status and activity level. Exam Vital Signs (past 8 hours): - 06/30/20 04:00 06/30/20 07:59 Temperature 98.2 F Pulse Rate 62 62 Respiratory Rate 18 16 Blood Pressure 127/65 Pulse Oximetry 98 96 Oxygen Delivery Method CPAP Oxygen Flow Rate 2 Narrative Exam Narrative: AAO in NAD. Extrem Right lower extremity: foot Details: vascular exam Details: dorsalis pedis pulse present, posterior tibial pulse present and normal capillary refill Left lower extremity: foot Details: normal capillary refill Other: Right foot lateral fifth metatarsal base wound has wound packing in place, and no strike-though on the dressings. There is no active bleeding but the wound is moist, however less than yesterday. Maceration starting at the incision and wound edges. No purulence, no erythema to surrounding tissues. Edema right foot. Sutures in place proximal and distal to the wound. There is no pain on pressure to the wound nor on dressing change. There is lack of sensation to the foot. There is no crepitus on pressure to the foot or posterior calf. He is able to gently wave the foot on DF/PF. CFT immediate to the digits. Objective Labs Result Diagrams: 06/30/20 05:25 Labs: Laboratory Results - last 24 hr 06/30/20 05:25 WBC 7.7 RBC 3.61 L Hgb 9.4 L Hct 29.1 L MCV 80.6 MCH 26.2 MCHC 32.5 RDW 16.8 H Plt Count 153 Neut % (Auto) 59.1 Lymph % (Auto) 26.4 [place] % (Auto) 10.0 Eos % (Auto) 3.1 Baso % (Auto) 1.4 Neut # (Auto) 4500 Lymph # (Auto) 2000 [place] # (Auto) 800 Eos # (Auto) 200 Baso # (Auto) 100 Right foot surgical cultures: COMMENTS: Comment Right 5th Metatarsal BASE; Rule Out Osteomyelitis Procedure Result Verified Site Gram Stain Final 06/28/20-1958 No Organism Seen No organisms seen White blood cells Occasional WBC seen Aerobic Culture for wounds Final 06/30/20-737 Organism 1 Staphylococcus aureus Growth SCANT 1. Staphylococcus aureus M.I.C. RX --------- --- * Daptomycin S * Vancomycin S * Ciprofloxacin R * Clindamycin S * Doxycycline S * Erythromycin S * Gentamicin S * Levofloxacin I * Linezolid S * Moxifloxacin S * Oxacillin Mark S * Rifampin S * Tetracycline S * Trimethoprim/Sulfamethoxazole S Anaerobic Culture: Pending Surgical Pathology is still pending. Assessment & Plan Post-op Postoperative Procedures: Procedures Operation Date: 06/28/20 13:30 Actual Procedures Side Surgeon p 5th metatarsal base partial resection Right Sammi MossRANDOLPH 64 yo DM male seen s/p Right fifth MT base partial excision. He is doing well, slept well, no significant pain to the foot. 1. Dressing changed, wound looks further improved and stable, however there was the start of some maceration to the incisional areas. No active bleeding and packing was easily changed, repacked more superficial, and redressed, reinforced. Consider dressing change again tomorrow morning. 2. Non-weightbearing right foot. Appreciate physical therapy consultation, and he is also using his post op shoe. He relates having used a wheel chair in the past at his rehab facility and also tried a walker but does need to use a little touchdown on the right foot with that (which is ok if for transfers or to the commode). 3. Continue use of post op shoe he brought with him he can use for when he needs to get up on the foot as above. 4. Still pending anaerobic, but culture of cut edge of fifth metatarsal has staph aureus growth (scant). This has grown out historically in this wound and will empirically start him on iv antibiotics to counter this, doxycycline q12h, for susceptibility, bone penetration, ease of use. Can eventually go po but prefer iv at the moment for maximium delivery. Will tailor antibiotic to his needs once we get further info back on culture. 5. PICC placement for Wednesday, iv ok until then. 6. Wound may be candidate for VAC, but will discuss after the weekend with his Wound Care physician as he has an appt with Wound Care on Wednesday as an outpatient. Will perform local dressings to the wound until that decision made, once daily. 7. Discussed disposition with Care Management today, and she is looking to secure a space for him at a local rehab facility to allow for wound care, iv antibiotics, and assistance with ADL while he is NWB right foot. Today she may have found location but will be pending insurance authorization. Will probably look like a Wednesday d/c and rehab admission. 8. Will monitor his Hb and look for hoahaoism of blood loss from operative procedure. Currently note a blood loss from surgery as reflected in the lab work. He is not exhibiting any symptoms of post op anemia otherwise. 9. DM management reviewed with him and nursing. He had a low BS last night into the 50s but with no constitutional symptoms and we reviewed this. Then this morning was ~287mg/dl on FSBS. He states this is a regiment he has been on for quite some time, and is comfortable, so I will let him stay on it today, but if he goes down again, we will consider adjusting down his long-acting. Continue low control SS, and will watch to note any needed changes here.
[2020-06-30] MEDS: carvediloL 12.5 MG TABLET PO ×2 (09:29→20:39)
[2020-06-30] MEDS: LATANOPROST 0.005% OPHTH 2.5 ML 1 DROPS EYE-BOTH (09:29)
[2020-06-30] MEDS: DOXAZOSIN 2 MG TABLET PO ×2 (09:29→20:39)
[2020-06-30] MEDS: GABAPENTIN 300 MG CAPSULE PO (09:29)
[2020-06-30] MEDS: FUROSEMIDE 40 MG TABLET PO (09:30)
[2020-06-30] MEDS: LOSARTAN 50 MG TABLET 100 MG PO (09:30)
[2020-06-30] MEDS: ASPIRIN EC 81 MG TABLET PO (09:30)
[2020-06-30] MEDS: INSULIN GLARGINE 100 UNIT/ML 3ML PEN 65 UNIT SUBCUT (09:30)
[2020-06-30] MEDS: RIVAROXABAN 10 MG TABLET 20 MG PO (09:30)
[2020-06-30] MEDS: METFORMIN HCL 500 MG TABLET 1000 MG PO (09:30)
[2020-06-30] MEDS: INSULIN ASPART 100 UNIT/ML INSULN PEN 15 UNIT SUBCUT ×2 (09:31→11:54)
[2020-06-30] MEDS: INSULIN ASPART 100 UNIT/ML INSULN PEN SUBCUT ×2 (09:32→11:54)
[2020-06-30] MEDS: DOXYCYCLINE 100 MG in SODIUM CHLORIDE 0.9% 100 ML IV ×2 (10:28→21:21)
[2020-06-30] MEDS: SODIUM CHLORIDE 0.9% 250 ML 21 ML IV (10:29)
[2020-06-30] MEDS: SODIUM CHLORIDE 0.9% FLUSH 10 ML IV ×2 (10:29→21:21)
--- NOTE | 2020-06-30 14:04 | PT.IPTN ---
Current Diagnoses Type 2 diabetes mellitus with diabetic polyneuropathy (06/28/20) Type 2 diabetes mellitus with foot ulcer (06/28/20) Other specified diabetes mellitus with foot ulcer (06/28/20) Osteomyelitis, unspecified (06/28/20) Acquired absence of right foot (06/28/20) Surgery Performed Operation Date: 06/28/20 13:30 Actual Procedures p 5th metarsal base partial resection(Right) - Sammi Moss DPM Physical Therapy Treatment Note M2 PT-IP Current Condition Start: 06/29/20 16:28 Freq: NEEDED Status: Active Protocol: Document 06/29/20 12:39 AB (Rec: 06/29/20 17:00 AB [id number]) Physical Therapy Current Condition Current Condition Evaluation Date 06/29/20 Treatment Diagnosis s/p R 5th metatarsal base excision; difficulty in walking Onset Date 06/28/20 Weight Bearing Status Weight Bearing Status Non-Weight Bearing Allowed Weight Bearing Amount (enter % per doctor's order NWB RLE; or #) (%) may to touch down weight bearing for transfers; talked to Dr. Moss and stated that pt is NWB on RLE but it pt does touch down weight bearing, it is better to have foot flat on floor than just using toes/forefoot. M3 PT-IP Subjective Start: 06/29/20 16:28 Freq: NEEDED Status: Active Protocol: Document 06/30/20 13:49 CLB (Rec: 06/30/20 14:10 CLB [id number]) Subjective Physical Therapy Visit Type Type Treatment Note Visit Start Time 13:49 Visit Stop Time 14:04 Total Visit Minutes 15 Number of LEAD APPLIER Visits 1 Physical Therapy Visit Comments Patient Comments Pt just returned to chair from BR with nursing, pt agreeable to seated ther ex. Therapy Pain Assessment Pain Present Pain Present Denied Pain M4 PT-IP Mobility and Gait Start: 06/29/20 16:28 Freq: NEEDED Status: Active Protocol: Document 06/29/20 12:39 AB (Rec: 06/29/20 17:00 AB [id number]) PT-Bed Mobility Assessment Supine to Sit Supine to Sit Standby Assistance PT-Transfer Assessment Sit to and From Stand Sit to and from Stand Contact Guard Assistance,1 Person Assistance,Use of Upper Extremities Equipment Transfer Assistive Device Gait Belt,Front Wheeled Walker Transfers Transfer Destination Toilet Transfer Technique ambulated using FWW Transfer Ability Level of Assist Contact Guard Assistance,1 Person Assistance,Use of Upper Extremities Comments Mobility Comments pt stated that he had PT at [facility] before for his foot as well and stated that he knows he is NWB on RLE but due to his body weight, he will not be able to maintain NWB but will need to have his foot down on floor but said that he will not push down on it and just use it for balance and that he is putting more weight on his forefoot. Pt also has prior L toes amputated and is having difficulty trying to balance with just standing on LLE. pt complete supine to sit SBA; sit to stand CGA and ambulated to the toilet using FWW CGA. pt unable to maintain NWB but cued on NWB and pt is aware and stated that he knows and is trying to use it to balance only. completed toileting and ambulated out of the toilet using FWW towards the sink and was able to maintain standing using FWW for support CGA and most weight on LLE. pt ambulated to the chair using FWW CGA. positioned on chair call light and table placed within reach. Talked to Dr. moss and stated that pt is NWB. informed the doctor that pt is unable maintain NWB on RLE but is doing what he can to just have foot down just for balance. informed the doctor that pt is trying not to put weight on where the wound is and tends to put weight on his toes. Dr stated that if pt' s wound is on the lateral 5th metatarsal area and due to pt' s decrease sensation and neuropathy with increase risk of sking breakdown, if pt has to put weight, it is better to have pt have foot flat than heel up. informed pt regarding doctor's instructions and that ambulation will be to a minimum to just functional short distance ambulation. Pt understood and agreed. Gait Assessment Gait Gait Assistance Required: Contact Guard Assist,1 Person Assist Distance (Feet) 15 Able to Maintain Weight Bearing Status Yes During Gait Assistive Devices Assistive Device Gait Belt,Front Wheeled Walker Orthotic/Prosthetic Devices or Brace: No Gait Deviations General Gait Pattern Antalgic Factors Limiting Gait Function Factors Limiting Gait Function Decreased Activity Tolerance, Decreased Sensation,Decreased Strength,Limited Range of Motion,Pain,Poor Balance,Poor Safety Awareness Comments Gait Comments pls refer to mobility section for details PT-Balance Assessment Sitting Balance and Reactions Static Sitting Balance Ability Good Dynamic Sitting Balance Ability Good Standing Balance and Reactions Static Standing Balance Ability Fair Dynamic Standing Balance Ability Poor Device Used FWW M5 PT-IP Objective Assessments Start: 06/29/20 16:28 Freq: NEEDED Status: Active Protocol: Document 06/29/20 12:39 AB (Rec: 06/29/20 17:00 AB [id number]) Orientation Orientation/Cognition Level of Alertness Alert Orientation Name,Age,Birthday,Month,Date, Year,Day of Week,Place, Situation Language Function Ability No Deficits Noted Safety Awareness Decreased Safety Awareness Memory Description No Deficits Noted Gross Range of Motion Lower Extremity ROM Assessment Within Functional Limits Strength Lower Extremity Strength Assessment Bilaterally Impaired Hip 3+/5 Knee 4-/5 Coordination Assessment Gross Coordination Gross Coordination WNL Sensation Assessment Sensation Light Touch Impaired Proprioception (Position) Impaired Sensation Description Numbness Muscle Tone Muscle Tone WNL Yes M6 PT-IP Treatment Start: 06/29/20 16:28 Freq: NEEDED Status: Active Protocol: Document 06/30/20 13:49 CLB (Rec: 06/30/20 14:10 CLB [id number]) Physical Therapy Treatment Exercises Exercises Ankle Pumps,Gluteal Sets,Quad Sets,Seated Knee Flexion/ Extension Education Education Provided Precautions,Weight Bearing Status,Safety M7 PT-IP Assessment and Plan Start: 06/29/20 16:28 Freq: NEEDED Status: Active Protocol: Document 06/30/20 13:49 CLB (Rec: 06/30/20 14:10 CLB [id number]) PT Summary Assessment and Plan Potential Rehabilitation Potential Fair Status of Condition at Evaluation Stable Summary Impairments Pain,ROM,Strength,Balance, Coordination,Sensation,Tone, Cognition,Bed Mobility, Transfers,Gait,Activity Tolerance Assessment Summary Pt had just walked to BR and due to mobility limits pt performed seated ther ex this session. Goals Bed Mobility Goal Independent Transfer Goal Independent,Front Wheeled Walker Gait Goal Independent,Front Wheel Walker Gait Distance 20 Days to Meet Goals 5 Frequency of Treatment Frequency Of Treatment Once a Day Treatment Plan Physical Therapy Treatment Plan Bed Mobility Training,Transfer Training,Gait Training, Therapeutic Exercise,Balance Retraining,Post Op Education, Discharge Planning,Hot or Cold Pack,Neuromuscular Re-ed, Coordination Retraining Other Recommendations and Next Treatment pls limit ambulation to Focus functional short distance ambulation with FWW at this time due to ensure pt's wound healing Recommendations To Nursing Amount of Assist Needed 1 Person Assist Discharge Recommendations PT Discharge Recommendations SNF Rehab
--- NOTE | 2020-06-30 14:46 | CM.DPC ---
DCP Cont: Tiffany from [facility] left a message reiterating that they do have male beds available. She will consult with April tomorrow to work on insurance authorization. Patient stated, he really likes the care at [facility] and feels confident going there. He stated, he has pretty good insurance, and they shouldn't have any trouble approving it. Confirmed that patient does live alone, but his son and grand son live a few miles away. Patient was worried about his car being parked at the ER area, for fear of having it towed away. He stated that his son is supposed to come tomorrow to move it. Having HUCK get in touch with security, gave her make and model of vehicle, so security can be aware. Updated Dr. Moss on insurance authorization, which will start tomorrow, but may not get authorized until Wednesday. P: DCP to continue to follow. Continue to converse with Dr. Moss on plan, and reach out tomorrow to April at [facility]. Kary Oneil RN/Dope Worker
--- NOTE | 2020-06-30 17:08 | PC.NURSE ---
Addendum entered by Alyssa Cardoza R.N. 06/30/20 22:21: Has denied pain to right foot/LE all evening. Requested vicodin to remain comfortable. Pt does admit to chronic back pain with activity. In bed now with BL LE's elevated. Addendum entered by Alyssa Cardoza R.N. 06/30/20 22:19: Blood sugar @ hs 123. Pt informed next check will be at 0200 07/01. Cpap with [address] Left calf scd in place. Bed alarm set for pt safety. Addendum entered by Alyssa Cardoza R.N. 06/30/20 19:31: Pt's blood sugar 97. Pt verbalizes concern re blood sugar dropping too low. Provided snack as per pt request and will continue to monitor. Addendum entered by Alyssa Cardoza R.N. 06/30/20 17:55: Pt assures this production underwriter is using I.S. Addendum entered by Alyssa Cardoza R.N. 06/30/20 17:41: Pt now more wakeful, engaged and conversant. Blood sugar 97 and pt has finished evening meal. Refuses any oral diabetic agents and of course insulin. Plan to recheck @ 1900. No longer diaphoretic. Instructed pt not to attempt out of chair without assistance and pt verbalizes agreement. Offered to assist pt with elevation of RLE in recliner and pt declines. I'm comfortable right now. Denies pain. Original Note: Pt up in recliner @ beginning of shift. Awake and conversant with staff. Requests blood sugar check shortly before dinner approximately 1640. Blood sugar 74. Given orange juice. Pt is sleepy and staff remain nearby to encourage this oral intake. Pt diaphoretic and sleepy following single orange juice and pt's dinner tray is directly in front of pt. Pt given two more orange juice cartons per request. Now more wakeful, interactive and able to feed self dinner. Will continue to monitor frequently throughout this evening shift. No insulin given to pt at this time. Holding metformin as well. Will continue to monitor and assess frequently.
[2020-06-30] MEDS: GABAPENTIN 600 MG TABLET PO (17:45)
[2020-06-30] MEDS: SIMVASTATIN 40 MG TABLET PO (20:39)
[2020-07-01] VITALS (8 sets, daily range): BP systolic 137–156; BP diastolic 63–72; PULSE 42–76; RESP 12–20; TEMP 36–36.4; O2SAT 98–99
--- NOTE | 2020-07-01 02:42 | PC.NURSE ---
Patient is alert and oriented. Breath sounds diminished at bases but CTA; using CPAP with oxygen bled in at 1.5L/min with sat of 99%. HR irregular with rate at 48 bpm apical; has previously been in 50's. Denies nausea. BT hypoactive; abdomen is soft. Denies dysuria, frequency or urgency with urination. Able to move himself in bed. Gait not assessed as has been asleep but evening RN reports he gets out of bed with walker and 1 assist; is NWB on right LE. Dressing to right LE is CDI; unable to palpate pulses related to dressing. 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 Wearing calf SCD on left LE. Denies pain. CBG rechecked at 0200 and was 110. Fall risk score is high and bed alarm is activated.
[2020-07-01 05:41] LABS: Add Manual Diff / Slide Review NO; Basophils Absolute Auto 100 /uL (0-100); Basophils Percent Auto 0.9 % (0-2); Eosinophils Absolute Auto 300 /uL (0-450); Eosinophils Percent Auto 3.9 % (2-4); Hematocrit 28.3 % (41-53); Hemoglobin 9.6 g/dL (13.5-17.5); Lymphocytes Absolute Auto 2200 /uL (1100-4500); Lymphocytes Percent Auto 30.5 % (25-40); Mean Corpuscular HGB Conc 34.1 % (30-36); Mean Corpuscular Hemoglobin 27.3 PG (26-34); Mean Corpuscular Volume 80.2 fL (80-100); Monocytes Absolute Auto 700 /uL (0-900); Monocytes Percent Auto 9.3 % (3-14); Neutrophils Absolute Auto 4100 /uL (1500-7000); Neutrophils Percent Auto 55.4 % (50-75); Platelet Count 162 X10^3/uL (150-400); Red Blood Cell Count 3.53 X10^6/uL (4.5-5.9); Red Cell Distribution Width 16.9 % (11.6-14.8); White Blood Cell Count 7.3 X10^3/uL (4.5-11.0)
--- NOTE | 2020-07-01 06:49 | PM.PNPO.1 ---
Subjective Subjective Date Patient Seen: 07/01/20 Time Patient Seen: 06:50 Interval history: s/p 3 days right fifth metatarsal base excision. Relates feeling good, no complaints. His blood sugar was more even overnight. He denies f/c/n/v and no significant pain to the foot, although he does take the narcotic for some back pain and pain in foot. In good spirits. Exam Vital Signs (past 8 hours): - 06/30/20 23:29 07/01/20 06:12 Temperature 97.1 F L 97.1 F L Pulse Rate 44 L 42 L Respiratory Rate 17 12 Blood Pressure 135/62 141/68 H Pulse Oximetry 99 99 Oxygen Delivery Method Nasal Cannula,CPAP Oxygen Flow Rate 0 Narrative Exam Narrative: AAO in NAD. Extrem Other: Right foot lateral fifth metatarsal base wound has wound packing in place, and no strike-though on the dressings. There is no active bleeding and the wound is moist, however less than yesterday. Maceration improved along the incision and wound edges. No purulence, no erythema to surrounding tissues. Edema stable right foot. Sutures in place proximal and distal to the wound. There is no pain on pressure to the wound nor on dressing change. There is lack of sensation to the foot. There is no crepitus on pressure to the foot or posterior calf. He is able to gently wave the foot on DF/PF. CFT immediate to the digits. Objective Labs Result Diagrams: 07/01/20 05:30 Labs: Laboratory Results - last 24 hr 07/01/20 05:30 WBC 7.3 RBC 3.53 L Hgb 9.6 L Hct 28.3 L MCV 80.2 MCH 27.3 MCHC 34.1 RDW 16.9 H Plt Count 162 Neut % (Auto) 55.4 Lymph % (Auto) 30.5 [place] % (Auto) 9.3 Eos % (Auto) 3.9 Baso % (Auto) 0.9 Neut # (Auto) 4100 Lymph # (Auto) 2200 [place] # (Auto) 700 Eos # (Auto) 300 Baso # (Auto) 100 Surgical cultures: COMMENTS: Comment Right 5th Metatarsal BASE; Rule Out Osteomyelitis Procedure Result Verified Site Gram Stain Final 06/28/20-1958 No Organism Seen No organisms seen White blood cells Occasional WBC seen Aerobic Culture for wounds Final 06/30/20-0738 Organism 1 Staphylococcus aureus Growth SCANT 1. Staphylococcus aureus M.I.C. RX --------- --- * Daptomycin S * Vancomycin S * Ciprofloxacin R * Clindamycin S * Doxycycline S * Erythromycin S * Gentamicin S * Levofloxacin I * Linezolid S * Moxifloxacin S * Oxacillin Mark S * Rifampin S * Tetracycline S * Trimethoprim/Sulfamethoxazole S Anaerobic Culture Final 06/30/20-1037 No growth. Pending Surgical pathology. Assessment & Plan Post-op Postoperative Procedures: Procedures Operation Date: 06/28/20 13:30 Actual Procedures Side Surgeon p 5th metatarsal base partial resection Right Sammi Moss, DPBlake 64 yo DM male seen s/p Right fifth MT base partial excision. He is doing well, slept well, no significant pain to the foot. 1. Dressing changed, wound looks further improved and stable. No active bleeding and packing was easily changed, repacked more superficial, and redressed, reinforced. Consider dressing change again tomorrow morning if he is awaiting discharge to SNF. Dressing change orders listed on discharge orders. 2. Non-weightbearing right foot. Appreciate physical therapy consultation, and he is also using his post op shoe. He relates having used a wheel chair in the past at his rehab facility and also tried a walker but does need to use a little touchdown on the right foot with that (which is ok if for transfers or to the commode). 3. Continue use of post op shoe he brought with him he can use for when he needs to get up on the foot as above. 4. Final culture results show no anaerobic growth. Culture of cut edge of fifth metatarsal has staph aureus growth (scant). This has grown out historically in this wound and will empirically start him on iv antibiotics to counter this, doxycycline q12h, for susceptibility, bone penetration, ease of use. Can eventually go po but prefer iv at the moment for maximum delivery. 5. PICC placement today for indeterminate use, starting with an additional week from today. 6. Wound may be candidate for VAC, he has an appt with Wound Care on Wednesday as an outpatient. Will perform local dressings to the wound until that decision made, once daily either as inpatient or via nursing at SNF. 7. Care Management continues to move ahead with securing a space for him at a local rehab facility to allow for wound care, iv antibiotics, and assistance with ADL while he is NWB right foot. Pending insurance authorization. Will probably look like a Wednesday d/c and rehab admission. 8. Stable post op anemia status. Will monitor if symptoms. He is not exhibiting any symptoms of post op anemia otherwise. 9. DM management reviewed with him and nursing. No low BS last night, Continue current regiment he has been on for quite some time, and is comfortable. Continue low control SS, and will watch to note any needed changes here.
[2020-07-01] MEDS: LATANOPROST 0.005% OPHTH 2.5 ML 1 DROPS EYE-BOTH (08:16)
[2020-07-01] MEDS: SODIUM CHLORIDE 0.9% FLUSH 10 ML IV ×2 (08:16→22:27)
[2020-07-01] MEDS: HYDROCODONE/ACET 5/325 TABLET 1 TAB PO ×2 (08:16→17:49)
[2020-07-01] MEDS: carvediloL 12.5 MG TABLET PO ×2 (08:17→22:06)
[2020-07-01] MEDS: DOXAZOSIN 2 MG TABLET PO ×2 (08:17→22:05)
[2020-07-01] MEDS: ASPIRIN EC 81 MG TABLET PO (08:17)
[2020-07-01] MEDS: RIVAROXABAN 10 MG TABLET 20 MG PO (08:17)
[2020-07-01] MEDS: METFORMIN HCL 500 MG TABLET 1000 MG PO ×2 (08:17→17:37)
[2020-07-01] MEDS: GABAPENTIN 300 MG CAPSULE PO (08:17)
[2020-07-01] MEDS: FUROSEMIDE 40 MG TABLET PO (08:18)
[2020-07-01] MEDS: LOSARTAN 50 MG TABLET 100 MG PO (08:18)
[2020-07-01] MEDS: INSULIN GLARGINE 100 UNIT/ML 3ML PEN 65 UNIT SUBCUT (08:19)
--- NOTE | 2020-07-01 09:29 | PT.IPTN ---
Current Diagnoses Type 2 diabetes mellitus with diabetic polyneuropathy (06/29/20) Type 2 diabetes mellitus with foot ulcer (06/29/20) Other specified diabetes mellitus with foot ulcer (06/29/20) Osteomyelitis, unspecified (06/29/20) Acquired absence of right foot (06/29/20) Surgery Performed Operation Date: 06/28/20 13:30 Actual Procedures p 5th metarsal base partial resection(Right) - Sammi Moss DPM Physical Therapy Treatment Note M2 PT-IP Current Condition Start: 06/29/20 16:28 Freq: NEEDED Status: Active Protocol: Document 06/29/20 12:39 AB (Rec: 06/29/20 17:00 AB [id number]) Physical Therapy Current Condition Current Condition Evaluation Date 06/29/20 Treatment Diagnosis s/p R 5th metatarsal base excision; difficulty in walking Onset Date 06/28/20 Weight Bearing Status Weight Bearing Status Non-Weight Bearing Allowed Weight Bearing Amount (enter % per doctor's order NWB RLE; or #) (%) may to touch down weight bearing for transfers; talked to Dr. Moss and stated that pt is NWB on RLE but it pt does touch down weight bearing, it is better to have foot flat on floor than just using toes/forefoot. M3 PT-IP Subjective Start: 06/29/20 16:28 Freq: NEEDED Status: Active Protocol: Document 07/01/20 09:10 CLB (Rec: 07/01/20 11:28 CLB [id number]) Subjective Physical Therapy Visit Type Type Treatment Note Visit Start Time 09:10 Visit Stop Time 09:29 Total Visit Minutes 19 Number of INDUSTRIAL ENGINEERING PROFESSOR Visits 2 Physical Therapy Visit Comments Patient Comments Pt willing to transfer to chair from bed. Therapy Pain Assessment Pain Present Pain Present Denied Pain M4 PT-IP Mobility and Gait Start: 06/29/20 16:28 Freq: NEEDED Status: Active Protocol: Document 07/01/20 09:10 CLB (Rec: 07/01/20 11:28 CLB [id number]) PT-Bed Mobility Assessment Supine to Sit Supine to Sit Standby Assistance Sit to Supine Sit to Supine Standby Assistance Scooting Scooting to Edge of Bed Standby Assistance PT-Transfer Assessment Sit to and From Stand Sit to and from Stand Contact Guard Assistance,1 Person Assistance,Use of Upper Extremities Equipment Transfer Assistive Device Gait Belt,Front Wheeled Walker Transfers Transfer Destination Chair Transfer Technique ambulated using FWW Transfer Ability Level of Assist Contact Guard Assistance,1 Person Assistance,Use of Upper Extremities Comments Mobility Comments Pt sitting on EOB upon arrival . Pt returned to supine then sat on EOB on other side of bed SBA. Pt then stood CGA and transferred to chair ambulating ~3ft CGA with FWW. Pt sat in chair CGA and performed seated ther ex. Left pt in chair with all needs within reach. RN informed. Gait Assessment Gait Gait Assistance Required: Contact Guard Assist,1 Person Assist Distance (Feet) 3 Able to Maintain Weight Bearing Status Yes During Gait Assistive Devices Assistive Device Gait Belt,Front Wheeled Walker Orthotic/Prosthetic Devices or Brace: No Gait Deviations General Gait Pattern Antalgic Factors Limiting Gait Function Factors Limiting Gait Function Decreased Activity Tolerance, Decreased Sensation,Decreased Strength,Limited Range of Motion,Pain,Poor Balance,Poor Safety Awareness Comments Gait Comments pls refer to mobility section for details M5 PT-IP Objective Assessments Start: 06/29/20 16:28 Freq: NEEDED Status: Active Protocol: Document 06/29/20 12:39 AB (Rec: 06/29/20 17:00 AB [id number]) Orientation Orientation/Cognition Level of Alertness Alert Orientation Name,Age,Birthday,Month,Date, Year,Day of Week,Place, Situation Language Function Ability No Deficits Noted Safety Awareness Decreased Safety Awareness Memory Description No Deficits Noted Gross Range of Motion Lower Extremity ROM Assessment Within Functional Limits Strength Lower Extremity Strength Assessment Bilaterally Impaired Hip 3+/5 Knee 4-/5 Coordination Assessment Gross Coordination Gross Coordination WNL Sensation Assessment Sensation Light Touch Impaired Proprioception (Position) Impaired Sensation Description Numbness Muscle Tone Muscle Tone WNL Yes M6 PT-IP Treatment Start: 06/29/20 16:28 Freq: NEEDED Status: Active Protocol: Document 07/01/20 09:10 CLB (Rec: 07/01/20 11:28 CLB [id number]) Physical Therapy Treatment Exercises Exercises Ankle Pumps,Gluteal Sets,Quad Sets,Seated Knee Flexion/ Extension Education Education Provided Precautions,Weight Bearing Status,Safety M7 PT-IP Assessment and Plan Start: 06/29/20 16:28 Freq: NEEDED Status: Active Protocol: Document 07/01/20 09:10 CLB (Rec: 07/01/20 11:28 CLB [id number]) PT Summary Assessment and Plan Potential Rehabilitation Potential Fair Status of Condition at Evaluation Stable Summary Impairments Pain,ROM,Strength,Balance, Coordination,Sensation,Tone, Cognition,Bed Mobility, Transfers,Gait,Activity Tolerance Assessment Summary Pt is SBA for all bed mobility and CGA for sit-stand and gait. Pt uses flat foot of RLE and use of UE's on FWW to limit WB on RLE. Goals Bed Mobility Goal Independent Transfer Goal Independent,Front Wheeled Walker Gait Goal Independent,Front Wheel Walker Gait Distance 20 Days to Meet Goals 5 Frequency of Treatment Frequency Of Treatment Once a Day Treatment Plan Physical Therapy Treatment Plan Bed Mobility Training,Transfer Training,Gait Training, Therapeutic Exercise,Balance Retraining,Post Op Education, Discharge Planning,Hot or Cold Pack,Neuromuscular Re-ed, Coordination Retraining Other Recommendations and Next Treatment pls limit ambulation to Focus functional short distance ambulation with FWW at this time due to ensure pt's wound healing Recommendations To Nursing Amount of Assist Needed 1 Person Assist Discharge Recommendations PT Discharge Recommendations SNF Rehab
--- NOTE | 2020-07-01 10:03 | CM.DPC ---
Addendum entered by LIA Cai 07/01/20 12:34: ADD: Call from [facility] and they have received insurance auth for the pt and can accept pt today or tomorrow pending MD discharge. DAMIAN called Dr. Moss and updated on insurance auth received and pt's PICC was successfully placed and currently receiving his IV-Abx. Dr. Moss at the [facility] office with back to back patients scheduled all afternoon and therefore will not be able to work on pt d/c until tonight. Therefore plan of d/c to [facility] in the morning and Dr. Moss will attempt to complete most of the d/c pwk tonight and aware that med rec will need to be signed and hard script for any narcotics will be needed and signed when she rounds on pt in the AM before clinic and likely around 0700 tomorrow. DAMIAN updated RN and [facility] and DCP will attempt to have IV-Abx administered a little early tomorrow morning so that [facility] can transport pt right after first dose late morning. DAMIAN updated pt bedside and he is agreeable with plan. Plan: SW to follow for pt d/c to [facility] tomorrow after morning IV-Abx dose. LIA Cai Original Note: DCP SNF Planning: SW received a call from [facility] admissions stating they had begun insurance auth process and unknown if determination will be back by today vs tomorrow but pt needs updated COVID test. radiation oncology manager kindly completed rapid COVID test and pending lab results. RN aware of possible d/c later today vs tomorrow to SNF pending insurance auth and PICC scheduled to be placed sometime today, possibly around 1100. Plan: DAMIAN to follow closely for SNF auth to finalize d/c planning to [facility]. LIA Cai
--- NOTE | 2020-07-01 10:34 | DI.RAD.S_ITS ---
PROCEDURE: XR CHEST FOR PICC 1V INDICATIONS: for PICC line confirmation COMPARISON: [facility], CR, CHEST 2 VIEW, 09/30/2011, 6:06. FINDINGS: PICC was placed by the intravenous therapy team from the left side. Fluoroscopic spot film demonstrates the tip of PICC projecting to the area of the upper SVC. Cardiomegaly is present. IMPRESSION: Tip of PICC projects to the area of superior SVC. Dictated by: Ignacio Gonzalez M.D. on 07/01/2020 at 11:08 Approved by: Ignacio Gonzalez M.D. on 07/01/2020 at 11:09
[2020-07-01 10:41] LABS: COVID19 -Nasal RAPID Negative (Negative)
[2020-07-01] MEDS: DOXYCYCLINE 100 MG in SODIUM CHLORIDE 0.9% 100 ML IV ×2 (11:13→22:27)
--- NOTE | 2020-07-01 11:13 | PC.NURSE ---
Addendum entered by Tona Dickinson R.N. 07/01/20 12:24: Pt did not want Novolog insulin this AM with breakfast. At lunch, pt wanted a total of 12 units of Novolog to go with his 144 blood glucose finger stick. COVID-19 rule out test prior to D/C to SNF negative. Pt now out of Isolation precautions. Original Note: Day Shift- At 1100, Per FELICITAS Schmitt. okay to use BRODY PICC. Xray confirmation completed. PICC line is leaking at site per Keshia. Will monitor.
[2020-07-01] MEDS: INSULIN ASPART 100 UNIT/ML INSULN PEN SUBCUT (12:22)
[2020-07-01] MEDS: INSULIN ASPART 100 UNIT/ML INSULN PEN 15 UNIT SUBCUT (12:23)
--- NOTE | 2020-07-01 13:23 | DIET.PN ---
Dietary Progress Note Assessment: Mr. Dang is a 64 yom s/p 3 days right fifth metatarsal base excision. He reports good appetite and he is feeling good. Pt indicates blood glucose has been lower than normal during admit. He states usual insulin management is 65 u lantus and 15/15/10 u of meal time novolog. Recently he has not been following that protocol and has been on SSI based on pre-meal blood sugar. This morning he requested he not be given any insulin and lunch requested 12 u. He generally wears a CGM. Usual intake includes yummy bowls starched based bowl w/ sauteed vegetables and meat in teriyaki or soy sauce. He quit drinking alcohol and has cut down on his desserts. However since his passed he has not cared much for his health. He says she used to check his feet nightly, which is why he did not know about his wound. HT: 177.8cm WT: 140.6g UBW: na BMI: 44.4 Labs: A1c: 8.4 MNA: 14 Juwan: 20 Nutrition Diagnosis: Altered nutrition-related laboratory values r/t endocrine dysfunction aeb pt report diet high in refined carbohydrates, lack of exercise, A1c greater than normative standards (8.4). Interventions: 1. Reviewed pathophysiology of diabetes. Reviewed A1c and its correlation to blood glucose numbers. Discussed recommended BG ranges. 2. Discussed impact of nutrition/diet on blood sugar control.? Discussed fed versus non-fed state.?? 3. Discussed the effect of carbohydrates/protein/fat on blood sugar control.? Stressed importance of consistent carbohydrate intake at each meal and provided instructions for recommended servings/portions of carbohydrates/protein per meal. Provided pt with educational material. 4. Reviewed carbohydrate counting and measuring carbohydrate content via serving sizes and reading nutrition labels.? Provided handouts.?? 5. Discussed the difference between simple versus complex carbohydrates and the effect of fiber on blood sugar control.? Discussed various methods to increase fiber content in diet. 6. Discussed healthy weight loss through diet and exercise to increase lean muscle mass.? Diet Order: CCD EER: [id number] elizabeth (15-17cal/kg) weight loss; 051120 g Pro (1-1.2) Monitoring/Evaluations: Weight, PO's, labs. Pt indicates he has had prior diabetes education. Discussed possible interest in outpatient diabetes review. Provided information.
[2020-07-01] MEDS: GABAPENTIN 600 MG TABLET PO (17:37)
--- NOTE | 2020-07-01 19:22 | RT ---
home cpap on 2lpm stjoana pt wants to place it on self when ready
[2020-07-01] MEDS: SIMVASTATIN 40 MG TABLET PO (22:05)
--- NOTE | 2020-07-01 23:43 | PC.NURSE ---
RENÉ Shift note. pt AO and receptive to care. BRODY PICC infusing ABX at time of this note. Dressing to right foot completed by Dr. Moss this morning and is still CDI. pt has sensation to both feet and reported 1-4/10 pain during shift being managed with [place] 5. 1PA for transfers. pt requested we take his blood sugar at 1620 because he was feeling weird, CBG was 66. pt drank 2 OJ juice boxes and some crackers and started to feel better, CBG 30 minutes later was 86. CBG at 2030 was 99 and pt was provided with a snack. Plan is to DC tomorrow to [facility] to continue IV ABX.
[2020-07-02 00:35] VITALS: BP 143/72; PULSE 45; RESP 14; TEMP 36.4; O2SAT 98
[2020-07-02] MEDS: HYDROCODONE/ACET 5/325 TABLET 1 TAB PO ×2 (00:40→07:51)
--- NOTE | 2020-07-02 01:48 | PC.NURSE ---
Seen and assessed at 0035. Patient is alert and oriented. Breath sounds diminished at bases. Using CPAP with oxygen bled in at 1L/min with sat of 98%. HR irregular and remains bradycardic with rate of 45. BP consistently elevated; currently 143/72. Denies nausea. BT hypoactive. Voiding per urinal; denies dysuria, frequency or urgency. Is able to turn himself. Not out of bed so gait not assessed at this time. Dressing to right foot is CDI. Does complain of 6/10 pain in foot and was medicated with Vicodin. Wearing calf SCD to left LE. Fall risk score is high and bed alarm is activated.
[2020-07-02 05:30] VITALS: BP 140/74; PULSE 47; RESP 14; TEMP 36.7; O2SAT 98
--- NOTE | 2020-07-02 07:06 | PM.PNPO.1 ---
Subjective Subjective Date Patient Seen: 07/02/20 Time Patient Seen: 07:06 Interval history: s/p 4 days right fifth metatarsal base excision. Relates feeling good, although he noticed his blood sugar dipped again last night, but corrected after juice within an hour and he did well after that. He feels like he his lunch meal is much less than he normally eats, and he wasn't at the point of feeling dizzy, but just could tell it was beginning to be low at that time. He feels like he has also felt some stress of the situation but is looking forward to returning to [facility] as he really liked their care and felt comfortable there last time earlier in the year. No complaints otherwise. He denies f/c/n/v and no significant pain to the foot, although he does take the narcotic for some back pain and pain in foot. Exam Vital Signs (past 8 hours): - 07/02/20 00:35 07/02/20 05:30 Temperature 97.6 F 98.0 F Pulse Rate 45 L 47 L Respiratory Rate 14 14 Blood Pressure 143/72 H 140/74 Pulse Oximetry 98 98 Oxygen Delivery Method Nasal Cannula,CPAP Oxygen Flow Rate 1 Const General: cooperative Orientation: alert, awake and oriented x3 Extrem Other: Right foot lateral fifth metatarsal base wound has wound packing in place, and no strike-though on the dressings. There is no active bleeding and the wound is moist, continuing to be less than the previous day. Maceration again mproved along the incision and wound edges. No purulence, no erythema to surrounding tissues. Edema stable right foot. Sutures in place proximal and distal to the wound. There is no pain on pressure to the wound nor on dressing change. There is mostly a lack of sensation to the foot. He is able to gently wave the foot on DF/PF. CFT immediate to the digits. Objective Labs Result Diagrams: 07/01/20 05:30 Labs: Laboratory Results - last 24 hr 07/01/20 09:30 COVID-19 PCR Negative Surgical cultures: COMMENTS: Comment Right 5th Metatarsal BASE; Rule Out Osteomyelitis Procedure Result Verified Site Gram Stain Final 06/28/20-1958 No Organism Seen No organisms seen White blood cells Occasional WBC seen Aerobic Culture for wounds Final 06/30/20-737 Organism 1 Staphylococcus aureus Growth SCANT 1. Staphylococcus aureus M.I.C. RX --------- --- * Daptomycin S * Vancomycin S * Ciprofloxacin R * Clindamycin S * Doxycycline S * Erythromycin S * Gentamicin S * Levofloxacin I * Linezolid S * Moxifloxacin S * Oxacillin Mark S * Rifampin S * Tetracycline S * Trimethoprim/Sulfamethoxazole S Anaerobic Culture Final 06/30/20-1037 No growth. Pending Surgical pathology. Assessment & Plan Post-op Postoperative Procedures: Procedures Operation Date: 06/28/20 13:30 Actual Procedures Side Surgeon p 5th metatarsal base partial resection Right Sammi Moss, DPBlake 64 yo DM male seen s/p Right fifth MT base partial excision. 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 1. Dressing changed, wound looks further improved and stable. No active bleeding and packing was easily changed, repacked more superficial, and redressed, reinforced. Dressing change orders listed on discharge orders and may start tomorrow. Updated dressing orders based on his consultation with Dr. Johnson Wednesday if he is candidate for VAC or alternative option. 2. Non-weightbearing right foot. Appreciate physical therapy consultation, and he is also using his post op shoe. He relates having used a wheel chair in the past at his rehab facility and also tried a walker but does need to use a little touchdown on the right foot with that (which is ok if for transfers or to the commode). 3. Continue use of post op shoe he brought with him he can use for when he needs to get up on the foot as above. 4. Final culture results show no anaerobic growth. Culture of cut edge of fifth metatarsal has staph aureus growth (scant). This has grown out historically in this wound and will empirically start him on iv antibiotics to counter this, doxycycline q12h, for susceptibility, bone penetration, ease of use. Can eventually go po but prefer iv at the moment for maximum delivery. 5. PICC placed yesterday for indeterminate use, starting with an additional week from discharge and will update as he is seen as outpatient. 6. Care Management [facility] to allow for wound care, iv antibiotics, and assistance with ADL while he is NWB right foot. Probably a Wednesday (today) d/c and rehab admission. 7. Stable post op anemia status. Can continue monitor if symptoms from rehab as outpatient. Discussed eating well, some movement and physical activity while under the restrictions we have given, but also under the care and guidance of his physician and providers at the care facility. He is not exhibiting any symptoms of post op anemia otherwise. 8. DM management reviewed with him and nursing. Low BS last night, but he was able to correct quickly. We discussed again the adjustment of his long acting insulin, but it's seemingly been two occurrences that were not predictable where it's dipped down. Since it returned quickly twice, ok to continue current regiment he has been on for quite some time, continue low control SS, and will have his physician at [facility] continue to monitor as well. Will also make arrangement for him to see me as outpatient.
[2020-07-02] MEDS: SODIUM CHLORIDE 0.9% FLUSH 10 ML IV (07:40)
[2020-07-02] MEDS: DOXYCYCLINE 100 MG in SODIUM CHLORIDE 0.9% 100 ML IV (07:40)
[2020-07-02 07:43] VITALS: PULSE 64; RESP 18; O2SAT 98
[2020-07-02] MEDS: LATANOPROST 0.005% OPHTH 2.5 ML 1 DROPS EYE-BOTH (07:47)
[2020-07-02] MEDS: RIVAROXABAN 10 MG TABLET 20 MG PO (07:48)
[2020-07-02 07:50] VITALS: BP 164/77; PULSE 64
[2020-07-02] MEDS: ASPIRIN EC 81 MG TABLET PO (07:50)
[2020-07-02] MEDS: DOXAZOSIN 2 MG TABLET PO (07:50)
[2020-07-02] MEDS: GABAPENTIN 300 MG CAPSULE PO (07:51)
[2020-07-02] MEDS: METFORMIN HCL 500 MG TABLET 1000 MG PO (07:51)
[2020-07-02] MEDS: carvediloL 12.5 MG TABLET PO (07:51)
[2020-07-02] MEDS: FUROSEMIDE 40 MG TABLET PO (07:52)
[2020-07-02] MEDS: LOSARTAN 50 MG TABLET 100 MG PO (07:52)
--- NOTE | 2020-07-02 07:52 | PM.DS.1 ---
History of Present Illness History of Present Illness Date Patient Seen: 07/02/20 Time Patient Seen: 07:53 Chief complaint: RIGHT FIFTH METATARSAL BASE PARTIAL RESECTION *OPB Narrative: 64 yo DM male with right fifth metatarsal wound and suspected osteomyelitis admitted following partial resection of the bone which took place on Sunday June 28, 2020. Discharge Providers Provider Date of admission: 06/29/20 11:30 Discharge Date: 07/02/20 Primary care physician: Bryce Tee MD Consults: 06/28/20 13:10 Consult to Respiratory Therapy Evaluate & Treat Comment: Physician Instructions: Evaluate and treat 06/28/20 16:50 Consult to Discharge Planning Routine Comment: Consult to Respiratory Therapy Evaluate & Treat Comment: Physician Instructions: Evaluate and treat 06/29/20 09:22 Consult to Physical Therapy Evaluate & Treat Comment: NWB right foot. Touchdown transfers ok. Physician Instructions: Evaluate and Treat 06/30/20 08:53 Consult to Dietitian, Adult Routine Comment: Reason For Exam: DM counseling and review Discharge provider: Sammi Moss DPM Summary Hospital Course Discharge Diagnosis: Right fifth metatarsal base wound Right metatarsal base osteomyelitis Hospital Course: Following the excision of the right fifth metatarsal base, the patient was admitted to the acute care unit. He was given empiric doxycycline iv q12h based on former culture results and daily dressing changes to the open wound. The wound continued to heal and stabilize. The cultures of the bone returned as Staphylococcus aureus, scant, sensitive to multiple medications, and he was continued on doxycycline. During this hospital course he was given consultation from physical therapy for instruction on non-weightbearing to the foot. Also consultation from respiratory, dietary, and care management. He did have post operative anemia reflecting the blood loss of the surgery, and likely some from chronic disease state. This has been stable and appropriate based on the level of blood loss. 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 We discussed the option of altering his long-acting insulin dose, but he has been stable on this for quite some time, and with the easy correction and 2 sporadic dips, our decision has been to proceed with his current routine, and can be adjusted as outpatient if truly see trend. PICC placed in anticipation of IV antibiotics while inpatient. Will continue iv doxycycline on initial d/c to SNF to allow for increased attempt at osseous penetration, and written for ~additional 7 days time, then we will discuss his development over the next week and determine if we may switch to oral medications. He has remained stable with no increase in WBC through his course, and we await pathology results of his fifth metatarsal base excision. He will be seeing wound care consultation tomorrow as an outpatient. Status at Discharge Cognitive/behavioral status at discharge: oriented Functional status at discharge: uses cane/walker (Non-weightbearing to the right foot except for transfers and stability.) Overall status at discharge: patient is progressing back to baseline Time Spent with Patient Time spent: Less than 30 minutes Exam Vital Signs (past 8 hours): - 07/02/20 00:35 07/02/20 05:30 07/02/20 07:43 Temperature 97.6 F 98.0 F Pulse Rate 45 L 47 L 64 Respiratory Rate 14 14 18 Blood Pressure 143/72 H 140/74 Pulse Oximetry 98 98 98 Oxygen Delivery Method Room Air Oxygen Flow Rate 1 Extrem Other: Please see progress note from today. Wound right foot fifth metatarsal base is stable with packing, no erythema, moist, and pulses palpable to the foot. No purulence. Objective Labs Result Diagrams: 07/01/20 05:30 Labs: Laboratory Results - last 24 hr 07/01/20 09:30 COVID-19 PCR Negative Discharge Assessment & Plan Assessment and Plan Assessment: Right fifth metatarsal base wound and osteomyelitis Plan of Treatment: Surgical excision of fifth metatarsal base performed. He is receiving antibiotics, local wound care, and medical management to heal the wound on the foot. Discharge to rehab facility with outpatient care with specialist providers. Discharge Plan Discharge Plan Patient Disposition: SNF Transfer to: [facility] Discharge orders & Medications Prescriptions: New doxycycline hyclate [Doxy-100] 100 mg Recon Soln 100 mg IV Q12H 7 Days RF: 0 Continued gabapentin 300 mg Capsule 300 mg PO DIRECTED Qty: 0 RF: 0 losartan 50 MG tablet 100 mg PO QDAY Qty: 0 RF: 0 simvastatin 20 MG tablet 40 mg PO BEDTIME Qty: 0 RF: 0 carvedilol 12.5 mg Tablet 12.5 mg PO BID RF: 0 aspirin 81 mg Tablet,Delayed Release (Dr/Ec) 81 mg PO DAILY RF: 0 doxazosin 2 mg Tablet 2 mg PO BID RF: 0 latanoprost 0.005 % Drops 1 drp EYE-BOTH DAILY RF: 0 metformin 1,000 mg Tablet 1,000 mg PO BID RF: 0 Xarelto 20 mg Tablet 20 mg PO DAILY RF: 0 furosemide 40 mg Tablet 40 mg PO DAILY RF: 0 insulin aspart U-100 [Novolog Flexpen U-100 Insulin] 100 unit/mL (3 mL) Insulin Pen 10 - 15 unit SUBCUT TID RF: 0 Lantus Solostar U-100 Insulin 100 unit/mL (3 mL) Insulin Pen 65 unit SUBCUT QAM RF: 0 hydrocodone-acetaminophen 7.5-325 mg Tablet 1 tab PO TID PRN (Reason: Pain) 14 Days Qty: 42 RF: 0 Follow up/Referrals: Sammi Moss DPM [Physician] - (Will make f/u appt date for my office after consultation with Dr. Johnson's appt Wednesday. We will contact patient to alert him as to when.) Bryce Tee MD [Primary Care Provider] - Moe Johnson MD [Physician] - 07/03/20 (Has existing appt Wednesday) Discharge Health Status Multidrug resistant organism: No MDRO Diet/Activity/Treatments Diet: Carb-consistent/Diabetic Activity: Ad kiara with assistive device and NWB right foot. Cold/Heat Therapy: No ice to foot/leg Oxygen: Has CPAP machine for sleeping Skin/Wound/Dressing Care Report to your healthcare provider any signs of infection, such as:: chills, fever, night sweats, increased pain, unusual drainage and unusual redness Dressing: Once daily dressing change right foot using 1/4 Nu-gauze packing, adaptic, 4x4s, abd pads (1 or 2), Kerlix, 4 ANGELINE wrap. stockinette. This order will extend until his appt with Wound Care on WednesdayJul 03 when this will need update from Dr. Johnson. [facility] Reason for rehabilitation: Post-operative therapy and Other Restrictions to mobility: NWB right foot except touch down flat foot for transfers Visit Report/Discharge Packet Instructions: How to Prevent Falls, Peripherally Inserted Central Catheter Stand Alone Forms: Dr. Moss Discharge, Surgery Discharge Discharge Data Primary Care Provider: Bryce Tee
[2020-07-02] MEDS: INSULIN ASPART 100 UNIT/ML INSULN PEN 15 UNIT SUBCUT (08:44)
[2020-07-02] MEDS: INSULIN GLARGINE 100 UNIT/ML 3ML PEN 65 UNIT SUBCUT (08:45)
[2020-07-02] MEDS: INSULIN ASPART 100 UNIT/ML INSULN PEN SUBCUT (08:45)
[2020-07-02 09:00] VITALS: BP 164/77; PULSE 50; RESP 19; TEMP 36.4; O2SAT 98
--- NOTE | 2020-07-02 09:16 | CM.DPC ---
DCP: continued: case received, EMR reviewed and d/c to snf noted. Checked in with pt who reports he is hoping for a d/c to [facility] this morning. His IV antibiotic dose will be completed shortly and next dose in 12 hours. DC summary and snf orders are faxed now and placed to snf packet. PASRR: reviewed, faxed to [facility] and placed to [facility] packet. Conferred with ALESHA Carbone who stated that pt will be ready by 1030. Jenny/[facility] confirms their van can pick pt up at 1100 (they are familiar with him and aware of his need for a larger w/c). Will follow prn until d/c.
--- NOTE | 2020-07-02 10:15 | PC.NURSE ---
Addendum entered by Tona Dickinson R.N. 07/02/20 12:13: Pt left unit at 1111 via wheelchair brought by [facility]. Pt left unit in no distress with all his belongings. Addendum entered by Tona Dickinson R.N. 07/02/20 10:29: BRODY PICC gauze over insertion site is saturated with blood. Dressing removed, securement device in place. Area cleansed using CVC dressing kit, no active bleeding noted, small purple bruise distal to insertion site. Tegaderm placed over insertion site and securement device. Pt tolerated well. Original Note: Day Shift- Report called to ALESHA Lazcano at [facility] at 1010.
== END 2020-07-02 11:11 | DRG 617 ==
LOC: OR 07-01 07:16 → AC 07-01 07:16
PROVIDERS: Admitting Provider Podiatrist; PCP Student in an Organized Health Care Education/Training Program; Referring Provider Student in an Organized Health Care Education/Training Program; Visit Provider Podiatrist
PROC: 0Y6M0ZF Detachment at Right Foot, Partial 5th Ray, Open Approach (ICD-10-PCS; principal; 2020-06-28 13:30)
DX: E11.69 Type 2 diabetes mellitus with other specified complication (principal); M86.9 Osteomyelitis, unspecified; L97.419 Non-pressure chronic ulcer of right heel and midfoot with unspecified severity; Z68.41 Body mass index [BMI] 40.0-44.9, adult; D62 Acute posthemorrhagic anemia; M86.171 Other acute osteomyelitis, right ankle and foot; B95.61 Methicillin susceptible Staphylococcus aureus infection as the cause of diseases classified elsewhere; E66.01 Morbid (severe) obesity due to excess calories; E11.621 Type 2 diabetes mellitus with foot ulcer; E11.42 Type 2 diabetes mellitus with diabetic polyneuropathy; L97.514 Non-pressure chronic ulcer of other part of right foot with necrosis of bone; B95.2 Enterococcus as the cause of diseases classified elsewhere; G47.33 Obstructive sleep apnea (adult) (pediatric); L08.9 Local infection of the skin and subcutaneous tissue, unspecified; I10 Essential (primary) hypertension; Z79.2 Long term (current) use of antibiotics; Z86.73 Personal history of transient ischemic attack (TIA), and cerebral infarction without residual deficits; Z79.01 Long term (current) use of anticoagulants; Z89.431 Acquired absence of right foot; Z11.59 Encounter for screening for other viral diseases
CPT/HCPCS: 11042; 36415; 36569; 82962; 85025; 85027; 87070; 87075; 87077; 87147; 87176; 87186; 87205; 87635; 94760; 97110; 97161; 97530; J0690; J2250; J2704; J3010

== ENCOUNTER → 2020-07-03 09:17 | Outpatient (CLI) | payer MEDICARE, SELFPAY ==
[2020-06-28 16:39] VITALS: BMI 44.4
== END ==
PROVIDERS: PCP Student in an Organized Health Care Education/Training Program; Referring Provider Student in an Organized Health Care Education/Training Program; Visit Provider Family Medicine
DX: E11.621 Type 2 diabetes mellitus with foot ulcer (principal); L97.516 Non-pressure chronic ulcer of other part of right foot with bone involvement without evidence of necrosis; M86.671 Other chronic osteomyelitis, right ankle and foot; B95.61 Methicillin susceptible Staphylococcus aureus infection as the cause of diseases classified elsewhere; Z79.2 Long term (current) use of antibiotics
CPT/HCPCS: 11043; 99214

== ENCOUNTER → 2020-07-10 08:31 | Outpatient (CLI) | payer MEDICARE, SELFPAY ==
[2020-06-28 16:39] VITALS: BMI 44.4
[2020-07-10 11:14] LABS: Add Manual Diff / Slide Review NO; Basophils Absolute Auto 0 /uL (0-100); Basophils Percent Auto 0.5 % (0-2); Eosinophils Absolute Auto 300 /uL (0-450); Eosinophils Percent Auto 3.5 % (2-4); Hematocrit 29.6 % (41-53); Hemoglobin 9.9 g/dL (13.5-17.5); Lymphocytes Absolute Auto 1600 /uL (1100-4500); Mean Corpuscular HGB Conc 33.4 % (30-36); Mean Corpuscular Hemoglobin 26.4 PG (26-34); Mean Corpuscular Volume 79.1 fL (80-100); Monocytes Absolute Auto 600 /uL (0-900); Monocytes Percent Auto 7.8 % (3-14); Neutrophils Absolute Auto 5600 /uL (1500-7000); Neutrophils Percent Auto 68.2 % (50-75); Platelet Count 211 X10^3/uL (150-400); Red Blood Cell Count 3.75 X10^6/uL (4.5-5.9); Red Cell Distribution Width 16.3 % (11.6-14.8); White Blood Cell Count 8.2 X10^3/uL (4.5-11.0)
[2020-07-10 11:35] LABS: Erythrocyte Sedimentation Rate 59 MM/HR (0-15)
[2020-07-10 11:54] LABS: Alanine Aminotransferase 17 IU/L (<50); Albumin 3.7 g/dL (3.5-5.0); Albumin Globulin Ratio 1.3 (1.0-2.8); Alkaline Phosphatase 112 U/L (38-126); Aspartate Aminotransferase 24 IU/L (17-59); Bilirubin Total 0.5 mg/dL (0.2-1.3); Blood Urea Nitrogen 17 mg/dL (9-20); C-Reactive Protein Quant 0.7 mg/dL (<1.0); Calcium 8.8 mg/dL (8.4-10.2); Carbon Dioxide 32 mmol/L (22-32); Chloride 99 mmol/L (98-107); Estimated Glomerular Filt Rate > 60.0 mL/min (>60); Globulin 2.9 g/dL (1.7-4.1); Glucose 114 mg/dL (80-110); HEMOLYSIS < 15 (0-50); Sodium 136 mmol/L (137-145); Total Protein 6.6 g/dL (6.3-8.2)
== END ==
PROVIDERS: PCP Student in an Organized Health Care Education/Training Program; Referring Provider Student in an Organized Health Care Education/Training Program; Visit Provider Family Medicine
DX: E11.621 Type 2 diabetes mellitus with foot ulcer (principal); L97.516 Non-pressure chronic ulcer of other part of right foot with bone involvement without evidence of necrosis; M86.671 Other chronic osteomyelitis, right ankle and foot; B95.61 Methicillin susceptible Staphylococcus aureus infection as the cause of diseases classified elsewhere; Z79.2 Long term (current) use of antibiotics; L08.9 Local infection of the skin and subcutaneous tissue, unspecified
CPT/HCPCS: 11043; 36415; 80053; 85025; 85651; 86140; 87070; 87075; 87077; 87147; 87186; 87205; 99213

== ENCOUNTER → 2020-07-12 12:13 | Outpatient (CLI) | payer MEDICARE, SELFPAY ==
[2020-06-28 16:39] VITALS: BMI 44.4
== END ==
PROVIDERS: PCP Student in an Organized Health Care Education/Training Program; Referring Provider Student in an Organized Health Care Education/Training Program; Visit Provider Family Medicine
DX: E11.621 Type 2 diabetes mellitus with foot ulcer (principal); L97.511 Non-pressure chronic ulcer of other part of right foot limited to breakdown of skin
CPT/HCPCS: 99213

== ENCOUNTER → 2020-07-17 09:06 | Outpatient (CLI) | payer MEDICARE, SELFPAY ==
[2020-06-28 16:39] VITALS: BMI 44.4
== END ==
PROVIDERS: PCP Student in an Organized Health Care Education/Training Program; Referring Provider Student in an Organized Health Care Education/Training Program; Visit Provider Family Medicine
DX: E11.621 Type 2 diabetes mellitus with foot ulcer (principal); L97.516 Non-pressure chronic ulcer of other part of right foot with bone involvement without evidence of necrosis; M86.671 Other chronic osteomyelitis, right ankle and foot; B95.61 Methicillin susceptible Staphylococcus aureus infection as the cause of diseases classified elsewhere; Z79.2 Long term (current) use of antibiotics; L08.9 Local infection of the skin and subcutaneous tissue, unspecified
CPT/HCPCS: 11043; 99214

== ENCOUNTER → 2020-07-19 09:58 | Outpatient (CLI) | payer MEDICARE, SELFPAY ==
[2020-06-28 16:39] VITALS: BMI 44.4
== END ==
PROVIDERS: PCP Student in an Organized Health Care Education/Training Program; Referring Provider Student in an Organized Health Care Education/Training Program; Visit Provider Family Medicine
DX: E11.621 Type 2 diabetes mellitus with foot ulcer (principal); L97.516 Non-pressure chronic ulcer of other part of right foot with bone involvement without evidence of necrosis; M86.671 Other chronic osteomyelitis, right ankle and foot; B95.61 Methicillin susceptible Staphylococcus aureus infection as the cause of diseases classified elsewhere; Z79.2 Long term (current) use of antibiotics; L08.9 Local infection of the skin and subcutaneous tissue, unspecified
CPT/HCPCS: 11042

== ENCOUNTER → 2020-07-22 15:04 | Outpatient (CLI) | payer MEDICARE, SELFPAY ==
[2020-06-28 16:39] VITALS: BMI 44.4
== END ==
PROVIDERS: PCP Student in an Organized Health Care Education/Training Program; Referring Provider Student in an Organized Health Care Education/Training Program; Visit Provider Family Medicine
DX: E11.621 Type 2 diabetes mellitus with foot ulcer (principal); L97.516 Non-pressure chronic ulcer of other part of right foot with bone involvement without evidence of necrosis; M86.671 Other chronic osteomyelitis, right ankle and foot; B95.61 Methicillin susceptible Staphylococcus aureus infection as the cause of diseases classified elsewhere; Z79.2 Long term (current) use of antibiotics; L08.9 Local infection of the skin and subcutaneous tissue, unspecified
CPT/HCPCS: 11042; 97605

== ENCOUNTER → 2020-07-25 10:37 | Outpatient (CLI) | payer MEDICARE, SELFPAY ==
[2020-06-28 16:39] VITALS: BMI 44.4
== END ==
PROVIDERS: PCP Student in an Organized Health Care Education/Training Program; Referring Provider Student in an Organized Health Care Education/Training Program; Visit Provider Family Medicine
DX: E11.621 Type 2 diabetes mellitus with foot ulcer (principal); L97.511 Non-pressure chronic ulcer of other part of right foot limited to breakdown of skin
CPT/HCPCS: 97605

== ENCOUNTER → 2020-07-29 14:25 | Outpatient (CLI) | payer MEDICARE, SELFPAY ==
[2020-06-28 16:39] VITALS: BMI 44.4
== END ==
PROVIDERS: PCP Student in an Organized Health Care Education/Training Program; Referring Provider Student in an Organized Health Care Education/Training Program; Visit Provider Family Medicine
DX: E11.621 Type 2 diabetes mellitus with foot ulcer (principal); L97.513 Non-pressure chronic ulcer of other part of right foot with necrosis of muscle; M86.671 Other chronic osteomyelitis, right ankle and foot; Z79.2 Long term (current) use of antibiotics
CPT/HCPCS: 11043; 97605; 99213

== ENCOUNTER → 2020-08-01 11:01 | Outpatient (CLI) | payer MEDICARE, SELFPAY ==
[2020-06-28 16:39] VITALS: BMI 44.4
== END ==
PROVIDERS: PCP Student in an Organized Health Care Education/Training Program; Referring Provider Student in an Organized Health Care Education/Training Program; Visit Provider Family Medicine
DX: E11.621 Type 2 diabetes mellitus with foot ulcer (principal); L97.513 Non-pressure chronic ulcer of other part of right foot with necrosis of muscle
CPT/HCPCS: 97605

== ENCOUNTER → 2020-08-05 15:34 | Outpatient (CLI) | payer MEDICARE, SELFPAY ==
[2020-06-28 16:39] VITALS: BMI 44.4
== END ==
PROVIDERS: PCP Student in an Organized Health Care Education/Training Program; Referring Provider Student in an Organized Health Care Education/Training Program; Visit Provider Family Medicine
DX: E11.621 Type 2 diabetes mellitus with foot ulcer (principal); L97.515 Non-pressure chronic ulcer of other part of right foot with muscle involvement without evidence of necrosis; M86.671 Other chronic osteomyelitis, right ankle and foot; Z79.2 Long term (current) use of antibiotics
CPT/HCPCS: 11042; 97605; 99212

== ENCOUNTER → 2020-08-08 09:33 | Outpatient (CLI) | payer MEDICARE, SELFPAY ==
[2020-06-28 16:39] VITALS: BMI 44.4
== END ==
PROVIDERS: PCP Student in an Organized Health Care Education/Training Program; Referring Provider Student in an Organized Health Care Education/Training Program; Visit Provider Family Medicine
DX: E11.621 Type 2 diabetes mellitus with foot ulcer (principal); L97.513 Non-pressure chronic ulcer of other part of right foot with necrosis of muscle
CPT/HCPCS: 97605

== ENCOUNTER → 2020-08-12 11:43 | Outpatient (CLI) | payer MEDICARE, SELFPAY ==
[2020-06-28 16:39] VITALS: BMI 44.4
== END ==
PROVIDERS: PCP Student in an Organized Health Care Education/Training Program; Referring Provider Student in an Organized Health Care Education/Training Program; Visit Provider Family Medicine
DX: E11.621 Type 2 diabetes mellitus with foot ulcer (principal); L97.514 Non-pressure chronic ulcer of other part of right foot with necrosis of bone; M86.671 Other chronic osteomyelitis, right ankle and foot; Z79.2 Long term (current) use of antibiotics
CPT/HCPCS: 11042

== ENCOUNTER → 2020-08-15 09:44 | Outpatient (CLI) | payer MEDICARE, SELFPAY ==
[2020-06-28 16:39] VITALS: BMI 44.4
== END ==
PROVIDERS: PCP Student in an Organized Health Care Education/Training Program; Referring Provider Student in an Organized Health Care Education/Training Program; Visit Provider Family Medicine
DX: E11.621 Type 2 diabetes mellitus with foot ulcer (principal); L97.514 Non-pressure chronic ulcer of other part of right foot with necrosis of bone
CPT/HCPCS: 97605

== ENCOUNTER → 2020-08-19 09:07 | Outpatient (CLI) | payer MEDICARE, SELFPAY ==
[2020-06-28 16:39] VITALS: BMI 44.4
== END ==
PROVIDERS: PCP Student in an Organized Health Care Education/Training Program; Referring Provider Student in an Organized Health Care Education/Training Program; Visit Provider Family Medicine
DX: E11.621 Type 2 diabetes mellitus with foot ulcer (principal); L97.514 Non-pressure chronic ulcer of other part of right foot with necrosis of bone; M86.671 Other chronic osteomyelitis, right ankle and foot; Z79.2 Long term (current) use of antibiotics
CPT/HCPCS: 11044; 87070; 87075; 87077; 87147; 87176; 87186; 87205; 99213

== ENCOUNTER → 2020-08-20 11:42 | Outpatient (CLI) | payer MEDICARE, SELFPAY ==
[2020-06-28 16:39] VITALS: BMI 44.4
== END ==
PROVIDERS: PCP Student in an Organized Health Care Education/Training Program; Referring Provider Student in an Organized Health Care Education/Training Program; Visit Provider Family Medicine
DX: E11.621 Type 2 diabetes mellitus with foot ulcer (principal); L97.514 Non-pressure chronic ulcer of other part of right foot with necrosis of bone
CPT/HCPCS: 99213

== ENCOUNTER → 2020-08-22 09:36 | Outpatient (CLI) | payer MEDICARE, SELFPAY ==
[2020-06-28 16:39] VITALS: BMI 44.4
== END ==
PROVIDERS: PCP Student in an Organized Health Care Education/Training Program; Referring Provider Student in an Organized Health Care Education/Training Program; Visit Provider Family Medicine
DX: E11.621 Type 2 diabetes mellitus with foot ulcer (principal); L97.514 Non-pressure chronic ulcer of other part of right foot with necrosis of bone
CPT/HCPCS: 97605

== ENCOUNTER → 2020-08-26 08:43 | Outpatient (CLI) | payer MEDICARE, SELFPAY ==
[2020-06-28 16:39] VITALS: BMI 44.4
--- NOTE | 2020-08-26 | DI.MRI.S_ITS ---
PROCEDURE: MR FOOT RT WO/W CON INDICATIONS: Other chronic osteomyelitis, right ankle and foot TECHNIQUE: Noncontrast coronal T1 spin echo and STIR, sagittal T1 spin echo with fat saturation and STIR, axial T1 spin echo and T2 fast spin echo with fat saturation. After the administration of contrast, axial/sagittal/coronal T1 spin echo with fat saturation through the right foot. COMPARISON: [facility], MR, FOOT W&WO CONTRAST, 11/14/2012, 11:47. FINDINGS: Image quality: Diagnostic. Susceptibility artifacts are noted along plantar aspect of midfoot and forefoot.. 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 There is cortical erosion and extensive marrow edema involving plantar aspect of cuboid and adjacent 4th and 5th metatarsal bases. Contrast enhancement in these areas also noted. No other area of abnormal marrow signal or contrast enhancement. No acute fracture or dislocation. Soft tissues: Full-thickness ulceration involving plantar and lateral aspect of midfoot is seen at the level of 5th TMT joint with extensive soft adjacent soft tissue edema and swelling extending to dorsum of midfoot and forefoot. No discrete drainable abscess collection is seen. Heterogeneous contrast enhancement throughout lateral and dorsal midfoot and forefoot soft tissue is seen. No gross full-thickness forefoot tendon rupture. IMPRESSION: 1. Full-thickness ulceration involving plantar and lateral aspect of midfoot at the level of 5th TMT joint with extensive cellulitis extending to dorsal aspect of midfoot and forefoot. No discrete drainable abscess collection is seen. 2. Suggestion of osteomyelitis involving adjacent plantar and lateral aspect of cuboid as well as 4th and 5th metatarsal bases. Dictated by: Frantz Gordillo M.D. on 08/26/2020 at 11:06 Approved by: Frantz Gordillo M.D. on 08/26/2020 at 12:41
== END ==
PROVIDERS: PCP Student in an Organized Health Care Education/Training Program; Referring Provider Family Medicine; Visit Provider Family Medicine
DX: M86.671 Other chronic osteomyelitis, right ankle and foot (principal); L97.419 Non-pressure chronic ulcer of right heel and midfoot with unspecified severity; L03.115 Cellulitis of right lower limb; Z89.421 Acquired absence of other right toe(s)
CPT/HCPCS: 73720

== ENCOUNTER → 2020-08-26 10:17 | Outpatient (CLI) | payer MEDICARE, SELFPAY ==
[2020-06-28 16:39] VITALS: BMI 44.4
== END ==
PROVIDERS: PCP Student in an Organized Health Care Education/Training Program; Referring Provider Student in an Organized Health Care Education/Training Program; Visit Provider Family Medicine
DX: E11.621 Type 2 diabetes mellitus with foot ulcer (principal); L97.511 Non-pressure chronic ulcer of other part of right foot limited to breakdown of skin; M86.671 Other chronic osteomyelitis, right ankle and foot; L97.419 Non-pressure chronic ulcer of right heel and midfoot with unspecified severity; L03.115 Cellulitis of right lower limb; Z89.421 Acquired absence of other right toe(s)
CPT/HCPCS: 73720; 97605

== ENCOUNTER → 2020-08-29 09:10 | Outpatient (CLI) | payer MEDICARE, SELFPAY ==
[2020-06-28 16:39] VITALS: BMI 44.4
== END ==
PROVIDERS: PCP Student in an Organized Health Care Education/Training Program; Referring Provider Student in an Organized Health Care Education/Training Program; Visit Provider Family Medicine
DX: E11.621 Type 2 diabetes mellitus with foot ulcer (principal); L97.514 Non-pressure chronic ulcer of other part of right foot with necrosis of bone; M86.671 Other chronic osteomyelitis, right ankle and foot; Z79.2 Long term (current) use of antibiotics; B95.7 Other staphylococcus as the cause of diseases classified elsewhere
CPT/HCPCS: 11044; 87070; 87075; 87077; 87186; 87205; 99214

== ENCOUNTER → 2020-09-02 10:56 | Outpatient (CLI) | payer MEDICARE, SELFPAY ==
[2020-06-28 16:39] VITALS: BMI 44.4
== END ==
PROVIDERS: PCP Student in an Organized Health Care Education/Training Program; Referring Provider Student in an Organized Health Care Education/Training Program; Visit Provider Family Medicine
DX: E11.621 Type 2 diabetes mellitus with foot ulcer (principal); L97.514 Non-pressure chronic ulcer of other part of right foot with necrosis of bone
CPT/HCPCS: 97605

== ENCOUNTER → 2020-09-05 08:44 | Outpatient (CLI) | payer MEDICARE, SELFPAY ==
[2020-06-28 16:39] VITALS: BMI 44.4
== END ==
PROVIDERS: PCP Student in an Organized Health Care Education/Training Program; Referring Provider Student in an Organized Health Care Education/Training Program; Visit Provider Family Medicine
DX: E11.621 Type 2 diabetes mellitus with foot ulcer (principal); L97.514 Non-pressure chronic ulcer of other part of right foot with necrosis of bone; M86.671 Other chronic osteomyelitis, right ankle and foot; Z79.2 Long term (current) use of antibiotics; B95.7 Other staphylococcus as the cause of diseases classified elsewhere; B95.2 Enterococcus as the cause of diseases classified elsewhere
CPT/HCPCS: 97597; 99214

== ENCOUNTER → 2020-09-10 09:50 | Outpatient (CLI) | payer MEDICARE, SELFPAY ==
[2020-06-28 16:39] VITALS: BMI 44.4
== END ==
PROVIDERS: PCP Student in an Organized Health Care Education/Training Program; Referring Provider Student in an Organized Health Care Education/Training Program; Visit Provider Family Medicine
DX: E11.621 Type 2 diabetes mellitus with foot ulcer (principal); L97.514 Non-pressure chronic ulcer of other part of right foot with necrosis of bone
CPT/HCPCS: 97605

== ENCOUNTER → 2020-09-12 13:30 | Outpatient (CLI) | payer MEDICARE, SELFPAY ==
[2020-06-28 16:39] VITALS: BMI 44.4
== END ==
PROVIDERS: PCP Student in an Organized Health Care Education/Training Program; Referring Provider Student in an Organized Health Care Education/Training Program; Visit Provider Family Medicine
DX: E11.621 Type 2 diabetes mellitus with foot ulcer (principal); L97.514 Non-pressure chronic ulcer of other part of right foot with necrosis of bone; M86.671 Other chronic osteomyelitis, right ankle and foot; Z79.2 Long term (current) use of antibiotics; B95.7 Other staphylococcus as the cause of diseases classified elsewhere; B95.2 Enterococcus as the cause of diseases classified elsewhere
CPT/HCPCS: 97605; 99213

== ENCOUNTER → 2020-09-19 10:39 | Outpatient (CLI) | payer MEDICARE, SELFPAY ==
[2020-06-28 16:39] VITALS: BMI 44.4
== END ==
PROVIDERS: PCP Student in an Organized Health Care Education/Training Program; Referring Provider Student in an Organized Health Care Education/Training Program; Visit Provider Family Medicine
DX: E11.621 Type 2 diabetes mellitus with foot ulcer (principal); L97.512 Non-pressure chronic ulcer of other part of right foot with fat layer exposed; M86.671 Other chronic osteomyelitis, right ankle and foot; Z79.2 Long term (current) use of antibiotics; B95.7 Other staphylococcus as the cause of diseases classified elsewhere; B95.2 Enterococcus as the cause of diseases classified elsewhere
CPT/HCPCS: 97605; 99213

== ENCOUNTER → 2020-10-03 09:25 | Outpatient (CLI) | payer MEDICARE, SELFPAY ==
[2020-06-28 16:39] VITALS: BMI 44.4
== END ==
PROVIDERS: PCP Student in an Organized Health Care Education/Training Program; Referring Provider Student in an Organized Health Care Education/Training Program; Visit Provider Family Medicine
DX: E11.621 Type 2 diabetes mellitus with foot ulcer (principal); L97.525 Non-pressure chronic ulcer of other part of left foot with muscle involvement without evidence of necrosis; M86.671 Other chronic osteomyelitis, right ankle and foot; Z79.2 Long term (current) use of antibiotics; E11.40 Type 2 diabetes mellitus with diabetic neuropathy, unspecified; R60.0 Localized edema
CPT/HCPCS: 15275; 99213; Q4110

== ENCOUNTER → 2020-10-10 08:52 | Outpatient (CLI) | payer MEDICARE, SELFPAY ==
[2020-06-28 16:39] VITALS: BMI 44.4
== END ==
PROVIDERS: PCP Student in an Organized Health Care Education/Training Program; Referring Provider Student in an Organized Health Care Education/Training Program; Visit Provider Family Medicine
DX: E11.621 Type 2 diabetes mellitus with foot ulcer (principal); L97.515 Non-pressure chronic ulcer of other part of right foot with muscle involvement without evidence of necrosis; M86.671 Other chronic osteomyelitis, right ankle and foot; E11.40 Type 2 diabetes mellitus with diabetic neuropathy, unspecified; R60.0 Localized edema; Z79.2 Long term (current) use of antibiotics
CPT/HCPCS: 11042; 97605; 99213

== ENCOUNTER → 2020-10-17 08:34 | Outpatient (CLI) | payer MEDICARE, SELFPAY ==
[2020-06-28 16:39] VITALS: BMI 44.4
== END ==
PROVIDERS: PCP Student in an Organized Health Care Education/Training Program; Referring Provider Student in an Organized Health Care Education/Training Program; Visit Provider Family Medicine
DX: E11.621 Type 2 diabetes mellitus with foot ulcer (principal); L97.515 Non-pressure chronic ulcer of other part of right foot with muscle involvement without evidence of necrosis; M86.671 Other chronic osteomyelitis, right ankle and foot; R60.0 Localized edema
CPT/HCPCS: 11042; 97605

== ENCOUNTER → 2020-10-23 09:51 | Outpatient (CLI) | payer MEDICARE, SELFPAY ==
[2020-06-28 16:39] VITALS: BMI 44.4
== END ==
PROVIDERS: PCP Student in an Organized Health Care Education/Training Program; Referring Provider Student in an Organized Health Care Education/Training Program; Visit Provider Family Medicine
DX: L97.515 Non-pressure chronic ulcer of other part of right foot with muscle involvement without evidence of necrosis (principal); R60.0 Localized edema
CPT/HCPCS: 97605

== ENCOUNTER → 2020-10-31 09:41 | Outpatient (CLI) | payer MEDICARE, SELFPAY ==
[2020-06-28 16:39] VITALS: BMI 44.4
== END ==
PROVIDERS: PCP Student in an Organized Health Care Education/Training Program; Referring Provider Student in an Organized Health Care Education/Training Program; Visit Provider Family Medicine
DX: E11.621 Type 2 diabetes mellitus with foot ulcer (principal); L97.511 Non-pressure chronic ulcer of other part of right foot limited to breakdown of skin; M86.671 Other chronic osteomyelitis, right ankle and foot; E11.40 Type 2 diabetes mellitus with diabetic neuropathy, unspecified; R60.0 Localized edema
CPT/HCPCS: 15275; 99213; Q4110

== ENCOUNTER → 2020-11-07 08:53 | Outpatient (CLI) | payer MEDICARE, SELFPAY ==
[2020-06-28 16:39] VITALS: BMI 44.4
== END ==
LOC: WC 08:53
PROVIDERS: PCP Student in an Organized Health Care Education/Training Program; Referring Provider Student in an Organized Health Care Education/Training Program; Visit Provider Family Medicine
DX: E11.621 Type 2 diabetes mellitus with foot ulcer (principal); L97.521 Non-pressure chronic ulcer of other part of left foot limited to breakdown of skin; M86.671 Other chronic osteomyelitis, right ankle and foot; Z79.2 Long term (current) use of antibiotics; R94.4 Abnormal results of kidney function studies; Z59.8 Other problems related to housing and economic circumstances; L97.511 Non-pressure chronic ulcer of other part of right foot limited to breakdown of skin; R60.0 Localized edema; E11.40 Type 2 diabetes mellitus with diabetic neuropathy, unspecified
CPT/HCPCS: 15275; 99215; Q4110

== ENCOUNTER → 2020-11-14 08:42 | Outpatient (CLI) | payer MEDICARE, SELFPAY ==
[2020-06-28 16:39] VITALS: BMI 44.4
== END ==
PROVIDERS: PCP Student in an Organized Health Care Education/Training Program; Referring Provider Student in an Organized Health Care Education/Training Program; Visit Provider Family Medicine
DX: E11.621 Type 2 diabetes mellitus with foot ulcer (principal); L97.521 Non-pressure chronic ulcer of other part of left foot limited to breakdown of skin; M86.671 Other chronic osteomyelitis, right ankle and foot; E11.40 Type 2 diabetes mellitus with diabetic neuropathy, unspecified; Z59.8 Other problems related to housing and economic circumstances
CPT/HCPCS: 99212; 99214

== ENCOUNTER → 2020-11-21 08:55 | Outpatient (CLI) | payer MEDICARE, SELFPAY ==
[2020-06-28 16:39] VITALS: BMI 44.4
== END ==
PROVIDERS: PCP Student in an Organized Health Care Education/Training Program; Referring Provider Student in an Organized Health Care Education/Training Program; Visit Provider Family Medicine
DX: E11.621 Type 2 diabetes mellitus with foot ulcer (principal); L97.521 Non-pressure chronic ulcer of other part of left foot limited to breakdown of skin; M86.671 Other chronic osteomyelitis, right ankle and foot; Z79.2 Long term (current) use of antibiotics
CPT/HCPCS: 15275; 99213; Q4110

== ENCOUNTER → 2020-11-28 09:28 | Outpatient (CLI) | payer MEDICARE, SELFPAY ==
[2020-06-28 16:39] VITALS: BMI 44.4
== END ==
PROVIDERS: PCP Student in an Organized Health Care Education/Training Program; Referring Provider Student in an Organized Health Care Education/Training Program; Visit Provider Family Medicine
DX: E11.621 Type 2 diabetes mellitus with foot ulcer (principal); L97.511 Non-pressure chronic ulcer of other part of right foot limited to breakdown of skin; Z79.2 Long term (current) use of antibiotics
CPT/HCPCS: 99213

== ENCOUNTER → 2020-12-05 09:02 | Outpatient (CLI) | payer MEDICARE, SELFPAY ==
[2020-06-28 16:39] VITALS: BMI 44.4
== END ==
PROVIDERS: PCP Student in an Organized Health Care Education/Training Program; Referring Provider Student in an Organized Health Care Education/Training Program; Visit Provider Family Medicine
DX: E11.621 Type 2 diabetes mellitus with foot ulcer (principal); L97.511 Non-pressure chronic ulcer of other part of right foot limited to breakdown of skin; E11.40 Type 2 diabetes mellitus with diabetic neuropathy, unspecified
CPT/HCPCS: 99212; 99213

== ENCOUNTER → 2020-12-19 10:29 | Outpatient (CLI) | payer MEDICARE, SELFPAY ==
[2020-06-28 16:39] VITALS: BMI 44.4
== END ==
PROVIDERS: PCP Student in an Organized Health Care Education/Training Program; Referring Provider Student in an Organized Health Care Education/Training Program; Visit Provider Family Medicine
DX: E11.621 Type 2 diabetes mellitus with foot ulcer (principal); M21.6X1 Other acquired deformities of right foot; M86.30 Chronic multifocal osteomyelitis, unspecified site; E11.40 Type 2 diabetes mellitus with diabetic neuropathy, unspecified; Z59.8 Other problems related to housing and economic circumstances
CPT/HCPCS: 99213

== ENCOUNTER → 2021-08-27 14:58 | Outpatient (CLI) | payer MEDICARE, SELFPAY ==
[2020-06-28 16:39] VITALS: BMI 44.4
== END ==
PROVIDERS: Family Provider Student in an Organized Health Care Education/Training Program; PCP Student in an Organized Health Care Education/Training Program; Referring Provider Student in an Organized Health Care Education/Training Program; Visit Provider Family Medicine
DX: E11.621 Type 2 diabetes mellitus with foot ulcer (principal); L97.521 Non-pressure chronic ulcer of other part of left foot limited to breakdown of skin
CPT/HCPCS: 11042; 99214

== ENCOUNTER → 2021-09-03 08:13 | Outpatient (CLI) | payer MEDICARE, SELFPAY ==
[2020-06-28 16:39] VITALS: BMI 44.4
== END ==
PROVIDERS: Family Provider Student in an Organized Health Care Education/Training Program; PCP Student in an Organized Health Care Education/Training Program; Referring Provider Student in an Organized Health Care Education/Training Program; Visit Provider Family Medicine
DX: E11.621 Type 2 diabetes mellitus with foot ulcer (principal); L97.521 Non-pressure chronic ulcer of other part of left foot limited to breakdown of skin; L97.511 Non-pressure chronic ulcer of other part of right foot limited to breakdown of skin; B35.3 Tinea pedis; L84 Corns and callosities
CPT/HCPCS: 11042; 99214

== ENCOUNTER → 2021-09-10 08:36 | Outpatient (CLI) | payer MEDICARE, SELFPAY ==
[2020-06-28 16:39] VITALS: BMI 44.4
== END ==
PROVIDERS: Family Provider Student in an Organized Health Care Education/Training Program; PCP Student in an Organized Health Care Education/Training Program; Referring Provider Student in an Organized Health Care Education/Training Program; Visit Provider Family Medicine
DX: E11.621 Type 2 diabetes mellitus with foot ulcer (principal); L97.521 Non-pressure chronic ulcer of other part of left foot limited to breakdown of skin
CPT/HCPCS: 97597

== ENCOUNTER → 2021-09-17 08:55 | Outpatient (CLI) | payer MEDICARE, SELFPAY ==
[2020-06-28 16:39] VITALS: BMI 44.4
== END ==
PROVIDERS: Family Provider Student in an Organized Health Care Education/Training Program; PCP Student in an Organized Health Care Education/Training Program; Referring Provider Student in an Organized Health Care Education/Training Program; Visit Provider Family Medicine
DX: E11.49 Type 2 diabetes mellitus with other diabetic neurological complication (principal); G60.9 Hereditary and idiopathic neuropathy, unspecified
CPT/HCPCS: 99212

== ENCOUNTER → 2021-12-24 08:51 | Outpatient (CLI) | payer MEDICARE, SELFPAY ==
[2020-06-28 16:39] VITALS: BMI 44.4
--- NOTE | 2021-12-24 | DI.NM.S_ITS ---
PROCEDURE: NM HEATHER PERF SPECT REST & STR Rest and pharmacological stress myocardial perfusion SPECT with gated imaging and ejection fraction RADIOPHARMACEUTICAL: 25.7 mCi Tc-99m tetrafosmin IV at rest and 24.7 mCi Tc-99m tetrafosmin IV at peak effect of pharmacological stress. Pyl-icl-ualbkgdu was performed. INDICATIONS: Dyspnea, unspecified TECHNIQUE: Radiopharmaceutical was injected at peak stress test, and also at rest. SPECT images were obtained. SPECT myocardial perfusion images were displayed in short axis, horizontal long axis, and vertical long axis views. Gated images were reviewed using [employer] software. COMPARISON: None. CARDIAC STRESS: A pharmacologic stress test was performed under the supervision of an attending staff, using an infusion of regadenoson. Hemodynamic data: There is normal blood pressure and heart rate response to pharmacologic stress. Symptoms: The patient denied anginal chest pain. EKG: No diagnostic changes of ischemia; no ectopy. FINDINGS: Raw data: There is good myocardial uptake of radiotracer. No significant motion artifacts. Bxds-di-teiql ratio is 0.39 (normal is less than 0.38 for tetrafosmin tracer). Left ventricle function: Gated images demonstrate normal left ventricular wall thickening. No segmental wall motion abnormalities. No transient ischemic dilation; TID is 1.06 (normal less than 1.3). Left ventricle resting end diastolic volume is 181 mL. Left ventricle stress ejection fraction is 64%; normal range is above 45%. Myocardial perfusion: There is a large size, moderate intensity inferior wall defect that is partially reversible. There is also a small size severe intensity inferoapical reversible defect. The inferior wall is mildly hypokinetic on the gated images. IMPRESSION: 1. Abnormal myocardial perfusion imaging suggesting inferior ischemia in the apex and jose raul-infarct ischemia in the inferior wall with associated mild hypokinesis. 2. Dilated left ventricle with an EDV of 181 mL. 3. No ECG changes with pharmacologic stress. Results discussed with ordering provider's office nurse. Dictated by: Kristy Zabala .D.O. on 12/25/2021 at 14:40 Approved by: Kristy Zabala M.D. on 12/25/2021 at 14:49
[2021-12-24 10:46] LABS: COVID19 -Nasal RAPID Negative (Negative)
== END ==
PROVIDERS: Family Provider Student in an Organized Health Care Education/Training Program; PCP Student in an Organized Health Care Education/Training Program; Referring Provider Student in an Organized Health Care Education/Training Program; Visit Provider Student in an Organized Health Care Education/Training Program
DX: R94.39 Abnormal result of other cardiovascular function study (principal); R06.00 Dyspnea, unspecified; Z20.822 Contact with and (suspected) exposure to COVID-19
CPT/HCPCS: 78452; 87635; 93017; A9502; J2785